=== PATIENT | female | born 1995 | race Caucasian/White ===

== ENCOUNTER → 2018-03-31 16:28 | Outpatient (CLI) | payer OTHER, BC, SELFPAY ==
[2018-03-31 18:35] LABS: Add Manual Diff / Slide Review NO; Basophils Percent Auto 0.7 % (0-2); Hemoglobin 13.7 g/dL (12.0-16.0); Lymphocytes Percent Auto 34.1 % (25-40); Mean Corpuscular HGB Conc 33.4 % (30-36); Mean Corpuscular Volume 80.8 fL (80-100); Monocytes Percent Auto 8.1 % (3-14); Neutrophils Absolute Auto 4100 /uL (3000-5900); Neutrophils Percent Auto 55.1 % (50-75); Platelet Count 249 X10^3/uL (150-400); Red Blood Cell Count 5.08 X10^6/uL (4.0-5.2); Red Cell Distribution Width 14.9 % (11.6-14.8); White Blood Cell Count 7.4 X10^3/uL (4.5-11.0)
[2018-03-31 19:16] LABS: Alanine Aminotransferase 45 IU/L (9-52); Albumin 4.4 g/dL (3.5-5.0); Albumin Globulin Ratio 1.5 (1.0-2.8); Alkaline Phosphatase 70 U/L (38-126); Aspartate Aminotransferase 48 IU/L (14-36); Bilirubin Total 0.3 mg/dL (0.2-1.3); Blood Urea Nitrogen 12 mg/dL (7-17); Calcium 9.5 mg/dL (8.4-10.2); Carbon Dioxide 26 mmol/L (22-32); Chloride 101 mmol/L (98-107); Cholesterol 211 mg/dL (140-199); Estimated Glomerular Filt Rate > 60.0 mL/min (>60); Globulin 2.9 g/dL (1.7-4.1); Glucose 90 mg/dL (70-100); HDL Cholesterol 47 mg/dL (40-60); HEMOLYSIS 16 (0-50); LDL Cholesterol Calculated 98 mg/dL (<100); Potassium 4.1 mmol/L (3.4-5.1); Sodium 138 mmol/L (137-145); Total Protein 7.3 g/dL (6.3-8.2); Triglycerides 331 mg/dL (35-150)
[2018-03-31 19:22] LABS: Rheumatoid Factor < 8.6 IU/mL (<12.0)
[2018-03-31 19:46] LABS: TSH w/ Reflex to FT4 1.24 uIU/mL (0.47-4.68)
== END ==
PROVIDERS: PCP Family Medicine; Visit Provider Family Medicine
DX: M25.50 Pain in unspecified joint (principal); E28.2 Polycystic ovarian syndrome; R63.5 Abnormal weight gain
CPT/HCPCS: 36415; 80053; 80061; 84443; 85025; 86430

== ENCOUNTER → 2019-03-19 15:39 | Outpatient (CLI) | payer OTHER, SELFPAY ==
[2019-03-19 16:19] LABS: Add Manual Diff / Slide Review NO; Basophils Absolute Auto 0 /uL (0-100); Basophils Percent Auto 0.6 % (0-2); Eosinophils Absolute Auto 100 /uL (0-450); Eosinophils Percent Auto 1.8 % (2-4); Hematocrit 39.9 % (36-46); Hemoglobin 13.6 g/dL (12.0-16.0); Lymphocytes Absolute Auto 2400 /uL (1100-4500); Lymphocytes Percent Auto 32.8 % (25-40); Mean Corpuscular HGB Conc 34.1 % (30-36); Mean Corpuscular Hemoglobin 29.1 PG (26-34); Mean Corpuscular Volume 85.2 fL (80-100); Monocytes Absolute Auto 600 /uL (0-900); Monocytes Percent Auto 7.4 % (3-14); Neutrophils Absolute Auto 4300 /uL (1500-7000); Neutrophils Percent Auto 57.4 % (50-75); Platelet Count 252 X10^3/uL (150-400); Red Blood Cell Count 4.68 X10^6/uL (4.0-5.2); Red Cell Distribution Width 14.3 % (11.6-14.8); White Blood Cell Count 7.5 X10^3/uL (4.5-11.0)
[2019-03-19 16:58] LABS: Alanine Aminotransferase 32 IU/L (9-52); Albumin 4.4 g/dL (3.5-5.0); Albumin Globulin Ratio 1.6 (1.0-2.8); Alkaline Phosphatase 73 U/L (38-126); Aspartate Aminotransferase 37 IU/L (14-36); Bilirubin Total 0.3 mg/dL (0.2-1.3); Blood Urea Nitrogen 14 mg/dL (7-17); Calcium 9.9 mg/dL (8.4-10.2); Carbon Dioxide 23 mmol/L (22-32); Chloride 107 mmol/L (98-107); Estimated Glomerular Filt Rate > 60.0 mL/min (>60); Globulin 2.8 g/dL (1.7-4.1); Glucose 92 mg/dL (70-100); HEMOLYSIS < 15 (0-50); Potassium 4.4 mmol/L (3.4-5.1); Sodium 140 mmol/L (137-145); Total Protein 7.2 g/dL (6.3-8.2)
[2019-03-19 17:29] LABS: TSH w/ Reflex to FT4 1.07 uIU/mL (0.47-4.68)
== END ==
PROVIDERS: PCP Family Medicine; Visit Provider Family Medicine
DX: N91.2 Amenorrhea, unspecified (principal); N97.9 Female infertility, unspecified
CPT/HCPCS: 36415; 80053; 84443; 85025

== ENCOUNTER → 2019-04-22 14:47 | Outpatient (CLI) | payer OTHER, SELFPAY ==
[2019-04-22 15:53] LABS: Glucose 87 mg/dL (70-100)
[2019-04-22 16:10] LABS: Free T4, Direct Thyroxine 0.94 ng/dL (0.78-2.19)
[2019-04-22 20:02] LABS: Follicle Stimulating Hormone 6.07 mIU/mL
[2019-05-04 12:42] LABS: Insulin Level Total 10.7
== END ==
PROVIDERS: PCP Family Medicine; Visit Provider Obstetrics & Gynecology
DX: E28.2 Polycystic ovarian syndrome (principal); N97.0 Female infertility associated with anovulation
CPT/HCPCS: 36415; 82947; 83001; 83002; 83525; 84439

== ENCOUNTER → 2019-09-23 10:41 | Outpatient (CLI) | payer OTHER, SELFPAY ==
--- NOTE | 2019-09-23 10:42 | DI.US.S_ITS ---
PROCEDURE: US OB <= 14 WEEKS FETUS INDICATIONS: DATES AND VIABILITY OUTSIDE/PRIOR DATING DATA: Last menstrual period (LMP): 07/25/19. LMP-based estimated date of delivery (BOAZ): 04/30/20. First dating scan (date and location): 09/23/19. Estimated date of delivery (BOAZ) from first dating scan: 05/02/20. TECHNIQUE: Real-time scanning was performed of the fetus and maternal pelvic organs, with image documentation. Endovaginal scanning was also performed to better visualize the fetus and maternal ovaries. COMPARISON: None. FINDINGS: Embryo: [place]-rump length measures 1.8 cm corresponding to 8 weeks 2 days. Area measures 173 beats per minute. Measurement variability in dating: +/- 4 weeks by LMP, +/- 7 days by mean sac diameter (use before 6 weeks gestation if crown-rump length not able to be measured), +/- 5 days by crown-rump length (up to 8 weeks 6 days gestation), +/- 7 days by crown-rump length (up to 13 weeks 6 days gestation). Maternal organs: Ovaries within normal limits. Limited images through the kidneys demonstrate no hydronephrosis. IMPRESSION: 8 week 2 day nava IUP. Dictated by: Zhao Roca RRA Interpreted: Vic Nguyen MD on 09/23/2019 at 13:08 Approved by: iVc Nguyen M.D. on 09/23/2019 at 15:31
[2019-09-23 16:15] LABS: Add Manual Diff / Slide Review NO; Basophils Absolute Auto 0 /uL (0-100); Basophils Percent Auto 0.4 % (0-2); Eosinophils Absolute Auto 100 /uL (0-450); Eosinophils Percent Auto 1.3 % (2-4); Hematocrit 38.8 % (36-46); Hemoglobin 13.6 g/dL (12.0-16.0); Lymphocytes Absolute Auto 2400 /uL (1100-4500); Lymphocytes Percent Auto 27.3 % (25-40); Mean Corpuscular Hemoglobin 29.3 PG (26-34); Mean Corpuscular Volume 83.7 fL (80-100); Monocytes Absolute Auto 600 /uL (0-900); Monocytes Percent Auto 6.4 % (3-14); Neutrophils Absolute Auto 5800 /uL (1500-7000); Neutrophils Percent Auto 64.6 % (50-75); Platelet Count 250 X10^3/uL (150-400); Red Blood Cell Count 4.63 X10^6/uL (4.0-5.2); Red Cell Distribution Width 14.2 % (11.6-14.8); White Blood Cell Count 8.9 X10^3/uL (4.5-11.0)
[2019-09-23 17:07] LABS: Appearance Urine UA CLEAR; Bilirubin Urine UA NEGATIVE (NEGATIVE); Color Urine UA YELLOW; Glucose Urine UA NEGATIVE (Negative); Ketones Urine UA NEGATIVE (NEGATIVE); Leukocyte Esterase Urine UA NEGATIVE (NEGATIVE); Nitrite Urine UA NEGATIVE (Negative); Occult Blood Urine UA NEGATIVE (Negative); Protein Urine UA NEGATIVE (Negative); Specific Gravity Urine UA 1.025 (1.000-1.035); Urobilinogen Urine UA 0.2 E.U./dL (0.2)
[2019-09-23 17:10] LABS: pH Urine UA 5.5 (4.5-8.0)
[2019-09-23 17:22] LABS: Hepatitis B Surface Antigen NEGATIVE s/c (NEGATIVE)
[2019-09-23 17:32] LABS: HIV 1 & 2 Ab/Ag 4th Gen Combo NEGATIVE (NEGATIVE); Hep C Virus Ab w/Reflex Quant NEGATIVE s/c (NEGATIVE)
[2019-09-25 21:37] LABS: RPR Screen Nonreactive (Nonreactive)
== END ==
PROVIDERS: PCP Family Medicine; Visit Provider Family Medicine
DX: Z34.01 Encounter for supervision of normal first pregnancy, first trimester (principal); Z3A.08 8 weeks gestation of pregnancy
CPT/HCPCS: 36415; 76801; 80055; 81003; 86787; 86803; 86850; 86900; 86901; 87086; 87389

== ENCOUNTER → 2019-10-21 12:51 | Outpatient (CLI) | payer OTHER, SELFPAY ==
[2019-10-21 13:15] LABS: Appearance Urine UA CLEAR; Bilirubin Urine UA NEGATIVE (NEGATIVE); Color Urine UA YELLOW; Glucose Urine UA NEGATIVE (Negative); Ketones Urine UA TRACE (NEGATIVE); Leukocyte Esterase Urine UA NEGATIVE (NEGATIVE); Nitrite Urine UA NEGATIVE (Negative); Occult Blood Urine UA 3+ (Negative); Protein Urine UA NEGATIVE (Negative); Urobilinogen Urine UA 0.2 E.U./dL (0.2)
[2019-10-21 13:26] LABS: Bacteria Urine Many (>30); Culture Indicated Urine Cult Not Indicated; RBC Urine 10-30/HPF (0-5/HPF); Squamous Epithelial Cell Urine 10-30 /HPF (0-5/HPF); WBC Urine 0-1/HPF (0-5/HPF)
== END ==
PROVIDERS: PCP Family Medicine; Visit Provider Family Medicine
DX: R31.9 Hematuria, unspecified (principal)
CPT/HCPCS: 81001

== ENCOUNTER → 2019-10-22 10:31 | Outpatient (CLI) | payer OTHER, SELFPAY ==
[2019-10-22 10:37] LABS: Bacteria Urine None Seen; RBC Urine None Seen (0-5/HPF)
[2019-10-22 12:51] LABS: Appearance Urine UA CLEAR; Bilirubin Urine UA NEGATIVE (NEGATIVE); Color Urine UA YELLOW; Glucose Urine UA NEGATIVE (Negative); Ketones Urine UA NEGATIVE (NEGATIVE); Leukocyte Esterase Urine UA NEGATIVE (NEGATIVE); Nitrite Urine UA NEGATIVE (Negative); Occult Blood Urine UA NEGATIVE (Negative); Protein Urine UA NEGATIVE (Negative); Specific Gravity Urine UA <=1.005 (1.000-1.035); Urobilinogen Urine UA 0.2 E.U./dL (0.2)
[2019-10-22 12:58] LABS: Culture Indicated Urine Cult Not Indicated; Squamous Epithelial Cell Urine 0-1 /HPF (0-5/HPF); WBC Urine 0-1/HPF (0-5/HPF)
== END ==
PROVIDERS: PCP Family Medicine; Referring Provider Family Medicine; Visit Provider Family Medicine
DX: Z34.90 Encounter for supervision of normal pregnancy, unspecified, unspecified trimester (principal); R31.9 Hematuria, unspecified
CPT/HCPCS: 81001

== ENCOUNTER → 2019-11-24 13:46 | Outpatient (CLI) | payer OTHER, SELFPAY ==
[2019-11-26 21:07] LABS: AFP, Serum 45.7 ng/mL (.); Calc Gestational Age Ultrasound (.); Estriol, Free 0.92 ng/mL (.); Inhibin A, Dimeric 95.66 pg/mL (.); Inhibin A, MoM 0.74 (.); Maternal Ethnicity Caucasian (.); Maternal Weight 228 lbs (.); Number of Fetuses No (.); OSBR Risk 1 IN 2886 (.); Results Report (.); Test Results *Screen Negative* (.); hCG, MoM 0.89 (.); hCG, Serum 20936 mIU/mL (.)
== END ==
PROVIDERS: PCP Family Medicine; Referring Provider Family Medicine; Visit Provider Family Medicine
DX: Z34.90 Encounter for supervision of normal pregnancy, unspecified, unspecified trimester (principal); Z3A.16 16 weeks gestation of pregnancy
CPT/HCPCS: 36415; 82105; 82677; 84702; 86336

== ENCOUNTER → 2019-12-10 11:15 | Outpatient (CLI) | payer OTHER, SELFPAY ==
--- NOTE | 2019-12-10 11:16 | DI.US.S_ITS ---
PROCEDURE: US OB >= 14 WEEKS FETUS INDICATIONS: ANATOMY OUTSIDE/PRIOR DATING DATA: Last menstrual period (LMP): 07/25/2019. LMP-based estimated date of delivery (BOAZ): 04/30/2020. First dating scan (date and location): 09/23/2019. Estimated date of delivery (BOAZ) from first dating scan: 05/02/2020. TECHNIQUE: Real-time scanning was performed of the fetus, with image documentation and biometric measurements. Endovaginal scanning: Not performed COMPARISON: [facility], OB <= 14 WEEKS FETUS, 09/23/2019, 11:00. FINDINGS: General: A single living intrauterine gestation is present. Presentation: Variable. Placenta: Placental position is posterior, without previa. Amniotic fluid index: 13.3 cm, normal range is 5-24 cm. heart rate: 153 beats per minute. Maternal cervical canal: 3.1 cm long. Normal lower limit is 2.5 cm. biometrics: Biparietal diameter: 4.1 cm. 18 weeks 4 days. Head circumference: 16.7 cm. 19 weeks 3 days. Abdominal circumference: 14.2 cm. 19 weeks 4 days. Femur length: 3.1 cm. 19 weeks 4 days. Estimated gestational age from initial scan: 19 weeks 3 days. Composite gestational age from present scan: 19 weeks 3 days Estimated weight and percentile: 295 g. 48th percentile. Measurement variability for biometric dating: +/- 7 days from 14 weeks to 15 weeks 6 days gestation, +/- 10 days from 16 weeks to 21 weeks 6 days gestation, +/- 2 weeks from 22 weeks to 27 weeks 6 days gestation, +/- 3 weeks for 28 weeks gestation or later. weight reference: 4500 g or EFW >90/95% is considered macrosomia or large for gestational age. EFW <10% is small for gestational age. EFW 5% or less is considered intra-uterine growth restriction. Anatomic survey: Neuro: Ventricles are non-dilated at less than 10 mm. Cisterna magna is normal at 3-11 mm. Cerebellum is normal in size and morphology. Nuchal skin fold: Normal at less than 6 mm between 14-21 weeks gestational age. Face: Nose and lips, facial profile are normal. Spine: No evidence for spina bifida. Heart: 4-chambered heart is present, with normal ventricular outflow tracts. Diaphragm: Diaphragm is intact. Stomach: Left-sided stomach is present. Kidneys: No hydronephrosis. Normal is less than 5 mm in 2nd trimester, less than 7 mm in 3rd trimester. Cord: 3-vessel cord has orthotopic insertion. Bladder: Normal in size. Extremities: All 4 extremities identified. IMPRESSION: 1. Garcia living intrauterine at 19 weeks 3 days based on today's ultrasound. This is concordant with the prior ultrasound. There is expected interval growth. 2. Normal placenta and amniotic fluid. 3. Normal and complete anatomic survey. Dictated by: John oRmero M.D. on 12/10/2019 at 13:30 Approved by: John Romero M.D. on 12/10/2019 at 13:34
== END ==
PROVIDERS: PCP Family Medicine; Referring Provider Family Medicine; Visit Provider Family Medicine
DX: Z36.89 Encounter for other specified antenatal screening (principal); Z3A.19 19 weeks gestation of pregnancy
CPT/HCPCS: 76811

== ENCOUNTER → 2020-01-27 10:23 | Outpatient (CLI) | payer OTHER, SELFPAY ==
[2020-01-27 12:40] LABS: Hematocrit 34.7 % (36-46); Hemoglobin 11.8 g/dL (12.0-16.0)
[2020-01-27 13:18] LABS: GTT (PREG) 1 Hour PP 50gm Dose 119 mg/dL (76-139)
== END ==
PROVIDERS: PCP Family Medicine; Referring Provider Family Medicine; Visit Provider Family Medicine
DX: Z34.90 Encounter for supervision of normal pregnancy, unspecified, unspecified trimester (principal); Z3A.26 26 weeks gestation of pregnancy
CPT/HCPCS: 36415; 82950; 85014; 85018

== ENCOUNTER → 2020-02-10 12:41 | Outpatient (CLI) | payer OTHER, SELFPAY ==
[2020-02-10 12:47] LABS: Bacteria Urine None Seen
[2020-02-10 12:55] LABS: Appearance Urine UA CLEAR; Bilirubin Urine UA NEGATIVE (NEGATIVE); Color Urine UA YELLOW; Glucose Urine UA NEGATIVE (Negative); Ketones Urine UA NEGATIVE (NEGATIVE); Leukocyte Esterase Urine UA NEGATIVE (NEGATIVE); Nitrite Urine UA NEGATIVE (Negative); Occult Blood Urine UA 3+ (Negative); Protein Urine UA NEGATIVE (Negative); Specific Gravity Urine UA <=1.005 (1.000-1.035); Urobilinogen Urine UA 0.2 E.U./dL (0.2)
[2020-02-10 13:11] LABS: Culture Indicated Urine Cult Not Indicated; RBC Urine 30-100/HPF (0-5/HPF); Squamous Epithelial Cell Urine 0-1 /HPF (0-5/HPF); WBC Urine 0-1/HPF (0-5/HPF)
== END ==
PROVIDERS: PCP Family Medicine; Referring Provider Family Medicine; Visit Provider Family Medicine
DX: O26.899 Other specified pregnancy related conditions, unspecified trimester (principal); R31.9 Hematuria, unspecified
CPT/HCPCS: 81001

== ENCOUNTER → 2020-02-11 12:16 | Outpatient (CLI) | payer OTHER, SELFPAY ==
--- NOTE | 2020-02-11 12:17 | DI.US.S_ITS ---
PROCEDURE: US RENAL COMPLETE INDICATIONS: HEMATURIA, H/OKIDNEY STONES, ABDOMINAL PAIN, TECHNIQUE: Real-time scanning was performed of the kidneys and bladder, with image documentation. COMPARISON: [facility], CT, KIDNEY/ URETER/BLADDER, 02/27/2013, 17:46. FINDINGS: Kidneys: Kidneys are normal in size. Right kidney measures 12.2 cm long; left kidney measures 11.9 cm long. Right renal cortical thickness is 1.8 cm; left renal cortical thickness is 2 cm. Renal cortical echotexture is normal. No suspicious solid mass lesions. No hydronephrosis is seen. There is a 4 mm nonobstructing right-sided kidney stone seen within the mid right kidney. There is a 1.9 cm cyst seen at the superior aspect of the right kidney. Bladder: Pre-void bladder volume is 108 mL. Post-void residual is 31 mL. Pre-void images demonstrate no intraluminal masses or stones. On pre-void images, both ureteral jets are noted with color Doppler interrogation. (Of note, ureteral jets may not be detectable in up to 25% of cases due to insufficient differences in specific gravity between ureteral and bladder urine). Miscellaneous: No free pelvic fluid. IMPRESSION: There is a 4 mm nonobstructing right-sided kidney stone seen. No hydronephrosis is seen. A 1.9 cm right renal cyst is incidentally noted superiorly. Dictated by: Oz Logan M.D. on 02/11/2020 at 12:06 Approved by: Oz Logan M.D. on 02/11/2020 at 12:08
== END ==
PROVIDERS: PCP Family Medicine; Referring Provider Family Medicine; Visit Provider Family Medicine
DX: R31.9 Hematuria, unspecified (principal); N20.0 Calculus of kidney; N28.1 Cyst of kidney, acquired; Z87.442 Personal history of urinary calculi
CPT/HCPCS: 76770

== ENCOUNTER → 2020-03-09 13:19 | Outpatient (CLI) | payer OTHER, SELFPAY ==
[2020-03-09 14:56] LABS: Urine N gonorrhoeae NOT DETECTED
[2020-03-09 14:59] LABS: Urine Chlamydia NOT DETECTED
== END ==
PROVIDERS: PCP Family Medicine; Visit Provider Family Medicine
DX: Z11.8 Encounter for screening for other infectious and parasitic diseases (principal); Z34.90 Encounter for supervision of normal pregnancy, unspecified, unspecified trimester
CPT/HCPCS: 87491; 87591

== ENCOUNTER → 2020-04-06 10:29 | Outpatient (CLI) | payer OTHER, MEDICAID, SELFPAY ==
[2020-04-07 14:16] LABS: Strep Grp B PCR NEG for Grp B Strep
== END ==
PROVIDERS: PCP Family Medicine; Visit Provider Family Medicine
DX: Z34.90 Encounter for supervision of normal pregnancy, unspecified, unspecified trimester (principal); Z3A.36 36 weeks gestation of pregnancy
CPT/HCPCS: 87653

== ENCOUNTER 2020-05-01 11:46 | Outpatient (CLI) | payer OTHER, SELFPAY ==
--- NOTE | 2020-05-01 12:31 | PM.OBTRLD ---
Visit Information Visit Information Date of evaluation: 05/01/20 Primary OB Provider: Deepika Page On-call OB Provider: Deepika Page Reason for Evaluation: Yes non-stress test FOR[facility]LY [facility], [facility] Medical History Allergy (Acute) Infertility (Acute) PCOS (polycystic ovarian syndrome) (Acute) Pneumonia (Acute) Surgical History History of third molar tooth extraction (~2010) History of tonsillectomy (~1997) Kidney stones (Resolved ~2012) Family History Mother Hyperthyroidism Migraine Father Diabetes mellitus Hypertension Hyperlipidemia Myocardial infarct S/P triple vessel bypass Grandmother Suicide Grandfather Unknown whether patient has any health problems Grandfather Unknown whether patient has any health problems Grandmother Kidney disease, chronic, end stage on dialysis Family/Other Diabetes mellitus Social History marital status: number of children: 0 household members: spouse lives independently: Yes education level: college (Degree in exercise science BY ) 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 No tachycardia on NST. Scheduled for postdates induction 05/09/20. OB Disposition: home
== END 2020-05-01 12:30 | disposition home or self-care (01) ==
LOC: LABOR 11:50 → OB 05-02 09:29
PROVIDERS: PCP Family Medicine; Referring Provider Family Medicine; Visit Provider Family Medicine
DX: Z03.73 Encounter for suspected fetal anomaly ruled out (principal); Z3A.40 40 weeks gestation of pregnancy
CPT/HCPCS: 59025; G0378; G0379

== ENCOUNTER → 2020-05-06 10:32 | Outpatient (CLI) | payer OTHER, MEDICAID, SELFPAY ==
[2020-05-08 13:41] LABS: COVID19 Sendout Not Detected (Not Detect)
== END ==
PROVIDERS: PCP Family Medicine; Visit Provider Physician Assistant
DX: Z11.59 Encounter for screening for other viral diseases (principal)
CPT/HCPCS: 87635

== ENCOUNTER 2020-05-08 05:53 | Inpatient (IN) | payer OTHER, MEDICAID, SELFPAY ==
[2020-05-08] MEDS: LACTATED RINGERS 1,000 ML 100 ML IV ×2 (07:17→07:48)
[2020-05-08 07:23] LABS: Add Manual Diff / Slide Review NO; Basophils Absolute Auto 100 /uL (0-100); Basophils Percent Auto 0.5 % (0-2); Eosinophils Absolute Auto 100 /uL (0-450); Eosinophils Percent Auto 0.6 % (2-4); Hematocrit 37.8 % (36-46); Hemoglobin 12.7 g/dL (12.0-16.0); Lymphocytes Absolute Auto 2300 /uL (1100-4500); Lymphocytes Percent Auto 16.7 % (25-40); Mean Corpuscular HGB Conc 33.7 % (30-36); Mean Corpuscular Hemoglobin 29.3 PG (26-34); Monocytes Absolute Auto 800 /uL (0-900); Monocytes Percent Auto 5.7 % (3-14); Neutrophils Absolute Auto 10300 /uL (1500-7000); Neutrophils Percent Auto 76.5 % (50-75); Platelet Count 222 X10^3/uL (150-400); Red Blood Cell Count 4.34 X10^6/uL (4.0-5.2); Red Cell Distribution Width 14.9 % (11.6-14.8); White Blood Cell Count 13.5 X10^3/uL (4.5-11.0)
[2020-05-08 07:53] VITALS: BP 122/68
--- NOTE | 2020-05-08 08:43 | PM.AN.REGBLK ---
Regional Block Pre-procedure Procedure: Continuous Lumbar Epidural for L&D Attending OB provider: Deepika Page PMH/ROS narrative: term labor, PCOS on metformin, no complications. Albuterol on Rx list, but denies use or asthma. Hx: No personal or family history of anesthesia problems. ASA Class: II Labs: Hct 37.8 % (36-46) 05/08/20 06:50 Plt Count 222 X10^3/uL (150-400) 05/08/20 06:50 Medications: Current Medications Generic Name Dose Route Start Last Admin Trade Name Freq PRN Reason Stop Dose Admin Calcium Carbonate 1,000 mg 05/08/20 06:50 Tums PO Q2HR PRN Dyspepsia Diphenhydramine HCl 25 mg 05/08/20 08:02 Benadryl IV Q10M PRN Pruritis Lactated Ringer's 1,000 mls @ 100 mls/hr 05/08/20 07:00 05/08/20 07:48 Lactated Ringers IV 100 mls/hr CONT ISIDRA Administration Oxytocin/Lactated Ringer's 30 unit in 500 mls @ 3 mls/hr 05/08/20 07:00 Oxytocin Premix IV TITRATE ISIDRA Protocol 3 MILLIUNIT/MIN FENT 2MCG/ML BUPIV 0.125% EPI 200 mcg in 100 mls @ 6 mls/hr 05/08/20 08:15 Fentanyl/Bupiv/Ns 2mcg/Ml - 0.125% EPIDURAL CONT ISIDRA Ondansetron HCl 4 mg 05/08/20 06:50 Zofran IV Q4HR PRN Nausea And Vomiting Allergies: Allergies Allergy/AdvReac Type Severity Reaction Status Date / Time tree and shrub pollen Allergy Severe Typical Verified 02/10/20 10:40 symptoms sneezing and congestion Procedure Insertion date: 05/08/20 Insertion time: 08:17 Prep/Local: betadine x3 Interspace: L3-4 Patient position: sitting Needle: 18 gauge Hustead (CSE: 27g Pencan through Hustead, clear CSF. 1mL 0.25% bupiv) Loss of resistance with: saline ARABELLA at (cm): 6 Catheter placed at SKIN (cm): 12 Catheter in SPACE (cm): 6 Insertion: No Blood, No Paresthesia with insertion, No Paresthesia with injection and No Test dose reaction Initial Medications TEST DOSE time: 08:20 TEST DOSE: 1.5% lidocaine with epinephrine 1:200k (mL): 3 BOLUS DOSE time: 08:25 BOLUS DOSE (mL): 3 BOLUS DOSE med: other (infusate) Infusion INFUSION: 0.125% bupivacaine and with fentanyl 2 mcg/mL Initial rate (mL/hr): 6 Subsequent interventions: Post-procedure Anesthesia time START: 08:07 Anesthesia time END: 13:10 Post-procedure Anesthesia Assessment: Yes CV function: HR/BP stable, Yes Resp function: RR/sat/airway adequate, Yes Post-op hydration adequate, Yes Pain control adequate, Yes Nausea & vomiting absent, Yes Mental status appropriate and No Anesthesia complications
[2020-05-08 08:50] LABS: COVID19 -Nasal RAPID Negative (Negative)
--- NOTE | 2020-05-08 08:56 | P.HPOB_ITS ---
OB HPI Date/Time Date of admission: 05/08/20 Date Patient Seen: 05/08/20 Time Patient Seen: 09:00 History of Present Condition Chief complaint: Evaluation of Labor : 1 Para: 0 Estimated Date of Delivery: 04/30/20 Estimated Gestational Age (weeks): 41w1d Narrative: Annie Rosario is a 24 year old at 41 weeks and 1 day. Patient reports contractions began at approximately midnight and gradually increased in intensity the next several hours. Denies leaking, bleeding or decreased movement. She was scheduled for post-dates induction tomorrow. has been uncomplicated. She has a history of PCOS for which she takes metformin. It took over 2 years to conceive this . History of Present care: good care, initiated at week # (8), number of visits (15) and pounds weight gain (6) Dating criteria: LMP confirmed by 1st trimester US Ultrasounds: normal mid trimester US Obstetrical complications: none Medical complications: none Preadmission Labs Blood type: O (+) positive -: Antibody screen: negative, GBS status: negative, HBsAG: negative and RP R/VDLR: negative -: Chlamydia screen: not detected and Gonorrhea screen: not detected -: Rubella: immune and Varicella: immune HCT: 34.7 HCAB: negative PAP: Normal Quad screen: Normal Urine: Negative 1 hr GTT: 119 Evaluation Evaluation Baseline heart rate: 140 Variability: Moderate (11-25) monitor accelerations: Present monitor decelerations: Absent Contraction Frequency (minutes): 3 Uterine Contraction Intensity: Strong/Firm Category of Tracing: Reactive Cervical dilation (cm): 6 Cervical effacement (%): 100 station: -1 Laboratory results: Laboratory Tests 05/08/20 05/08/20 06:50 08:10 WBC 13.5 H RBC 4.34 Hgb 12.7 Hct 37.8 MCV 87.0 MCH 29.3 MCHC 33.7 RDW 14.9 H Plt Count 222 Neut % (Auto) 76.5 H Lymph % (Auto) 16.7 L [place] % (Auto) 5.7 Eos % (Auto) 0.6 L Baso % (Auto) 0.5 Neut # (Auto) 46250 H Lymph # (Auto) 2300 [place] # (Auto) 800 Eos # (Auto) 100 Baso # (Auto) 100 COVID-19 PCR Negative PFSH Medical History Allergy (Acute) Infertility (Acute) PCOS (polycystic ovarian syndrome) (Acute) Pneumonia (Acute) Surgical History History of third molar tooth extraction (~2010) History of tonsillectomy (~1997) Kidney stones (Resolved ~2012) Family History Mother Hyperthyroidism Migraine Father Diabetes mellitus Hypertension Hyperlipidemia Myocardial infarct S/P triple vessel bypass Grandmother Suicide Grandfather Unknown whether patient has any health problems Grandfather Unknown whether patient has any health problems Grandmother Kidney disease, chronic, end stage on dialysis Family/Other Diabetes mellitus Social History marital status: number of children: 0 household members: spouse lives independently: Yes education level: college (Degree in exercise science BY ) 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[employer] ) current occupational exposures/hazards: No special [place]e needs: No Smoking Status: Never smoker alcohol intake: never substance use type: does not use Meds Home Medications and Allergies Home Medications Medication Instructions Recorded Confirmed Type albuterol sulfate [Ventolin HFA] 2 puff INH Q4HP PRN #3 inh 10/09/17 03/23/20 Rx prenat.vits,jose alejandro,[id number] 1 tab PO DAILY 04/19/19 03/23/20 History loratadine 10 mg tablet 10 mg PO DAILY 09/23/19 03/23/20 History metformin 500 mg tablet 500 mg PO BID #180 tab 04/06/20 04/06/20 Rx Allergies Allergy/AdvReac Type Severity Reaction Status Date / Time tree and shrub pollen Allergy Severe Typical Verified 02/10/20 10:40 symptoms sneezing and congestion Review of Systems Review of Systems ROS: Yes All systems reviewed with the patient and are negative except as otherwise documented Exam Vital Signs (past 8 hours): - 05/08/20 07:53 Blood Pressure 122/68 Temperature 36? Blood pressure 130/84 Heart rate 80 Const General: healthy appearing and comfortable HENMT Head: normal to inspection Ears: hearing grossly normal bilaterally Nose: external nose normal Face and sinus: normal facial exam Mouth: oral mucosae normal Eyes General: appearance normal, both eyes and all related structures Neck Neck: normal visual inspection Resp Effort & Inspection: normal respiratory effort Auscultation: clear to auscultation bilaterally Cardio Rate: regular rate Rhythm: regular rhythm Heart Sounds: no murmurs GI Other: Gravid External Female Exam: normal external appearance Manual OB Exam: dilated 6, effaced fully and station -1 Presentation: vertex Estimated Weight (lbs): 8 Back/Spine/Pelvis Back: normal to inspection Skin General: no rashes or lesions noted Extrem General: normal to inspection and no pedal edema Objective Labs Result Diagrams: 05/08/20 06:50 Labs: Laboratory Results - last 24 hr 05/08/20 05/08/20 06:50 08:10 WBC 13.5 H RBC 4.34 Hgb 12.7 Hct 37.8 MCV 87.0 MCH 29.3 MCHC 33.7 RDW 14.9 H Plt Count 222 Neut % (Auto) 76.5 H Lymph % (Auto) 16.7 L Har[place] % (Auto) 5.7 Eos % (Auto) 0.6 L Baso % (Auto) 0.5 Neut # (Auto) 39264 H Lymph # (Auto) 2300 [place] # (Auto) 800 Eos # (Auto) 100 Baso # (Auto) 100 COVID-19 PCR Negative Assessment and Plan Assessment and Plan Assessment and Plan narrative: 24-year-old 41 weeks and 1 day gestation in labor. GBS negative. Comfortable with epidural. COVID-19 negative. Plan Expected management anticipate vaginal delivery.
--- NOTE | 2020-05-08 11:23 | PM.OBPNLAB ---
Date/Time Date Patient Seen: 05/08/20 Time Patient Seen: 11:05 Pain Control Pain control: tolerating well and epidural Pelvic Exam Dilation (cm): 9 Effacement (%): 100 station: -1 Amniotic membrane status: Ruptured (Scant amount, unable to determine if clear due to blood show in vagina. ) Contractions Contraction frequency (min): 2 Contraction intensity: Strong/Firm Status status: Category l Heart Rate Baseline: 140 Monitor Accelerations: Present Monitor Decelerations: Variable Monitor Variability: Moderate Assessment and Plan Assessment: active labor Plan: continuous present management
[2020-05-08] MEDS: OXYTOCIN PREMIX 30 UNIT/500 ML PLAST..BAG IV (13:00)
--- NOTE | 2020-05-08 13:44 | PM.OBPRVD ---
Labor & Delivery Delivery date: 05/08/20 Route of delivery: L&D Laceration Description: Perineal - 2nd Degree, Vaginal - 2nd Degree and Labial Delivery repair: vicryl Estimated blood loss (mL): 300 Anesthesia type: Epidural Narrative: VAGINAL DELIVERY NOTE Date 05/08/2020 BRIEF HISTORY: Patient is a 24-year-old at 41 weeks and 1 day gestation who gave on 05/08/20 at 12:55 p.pm.. BOAZ: 04/30/20 Hospital problems: 41 weeks of Epidural analgesia STAGE I: Labor Patient presented in active labor and received an epidural with adequate pain control. Strong contractions began at 3:45 a.m.. She progressed well spontaneously. AROM at 11:00 a.m. with a small amount of blood tinged fluid. She was completed at 12:00 p.m.. heart tones were category 1 and 2 throughout stage 1 due to intermittent variable decelerations. First stage of labor 8 hours and 15 minutes. STAGE II: Delivery Patient was complete and pushed well. She went on to deliver a vigorous female infant at 12:55 p.m.. Infant was vertex and EZEQUIEL. Infant was immediately placed on mother's abdomen. Cord was clamped and cut after 1 minute delay. Apagars were 8 and 9 at 1 and 5 minutes respectively. Second stage of labor 55 minutes. STAGE III: Placenta/Cord Placenta delivered at 12:59 p.m. after active management and appeared intact with a 3 vessel cord. Pitocin bolus given after delivery of placenta. The vagina was inspected and found to have a long second degree laceration extending far back into the vagina as well as into the perineum. Dr. Renee was consulted and present for repair. A Gelpi retractor was placed and a second retractor used to visualize the laceration. The apex was marked with an Allis clamp and the laceration was repaired with 2-O vicryl. Hemostasis assured. There was a superficial right labial laceration which was not repaired. Uterine fundus first 1 cm below umbilicus following laceration repair. EBL: 300 mL. Needle and sponge counts were correct. The vagina was inspected and no items were left in situ. Patient was doing well with Anaia, her and at bedside. Baby 1: gender: Female Presentation: vertex position: Right Occiput Anterior Placenta delivery description: Spontaneous cord vessel description: 3 Vessels score (1 min): 8 score (5 min): 9
[2020-05-08] MEDS: IBUPROFEN 600 MG TABLET PO (21:21)
[2020-05-08] MEDS: ACETAMINOPHEN 325 MG TABLET 650 MG PO (21:21)
[2020-05-08] MEDS: METFORMIN HCL 500 MG TABLET PO (21:25)
--- NOTE | 2020-05-09 13:27 | PM.OBDS.1 ---
Discharge Providers Provider Date of admission: 05/08/20 05:53 Discharge Date: 05/09/20 Primary care physician: Deepika Page DO Consults: 05/09/20 13:45 Consult to Residential Program Manager Routine Comment: Discharge provider: Deepika Page DO Summary Hospital Course Date Patient Seen: 05/09/20 Time Patient Seen: 12:45 Procedures: Spontaneous vaginal delivery Epidural analgesia Hospital Course: Patient is a 24-year-old G1 now P1 after spontaneous vaginal delivery at 41 weeks gestation on 05/08/20. She presented in active labor and received an epidural with adequate pain control. She went on to deliver a vigorous female . A long second-degree vaginal laceration was repaired with the assistance of Dr. Renee with good hemostasis. course was uncomplicated. is going very well. Patient was ambulating, eating, voiding and passing flatus. Vaginal bleeding was moderate as expected. Pain controlled with ibuprofen only. Advised patient to call for fevers, severe pain or bleeding through more than a pad an hour. She will follow-up in clinic in 6 weeks. We will also be seeing her when she brings in her . Peripartum Data Infant Delivery Method: Natural Vaginal Laceration Description: Perineal - 2nd Degree and Vaginal - 2nd Degree complications: none 1: Gender: Female Disposition of : home Discharge Diagnosis (1) Spontaneous vaginal delivery: Status: Acute (2) 41 weeks gestation of : Status: Acute Status at Discharge Cognitive/behavioral status at discharge: at baseline, oriented Overall status at discharge: patient is back to baseline Time Spent with Patient Time attestation: Total time spent providing and/or coordinating discharge services: Objective Labs Result Diagrams: 05/08/20 06:50 Exam Vital Signs (past 8 hours): Temperature 98.2? blood pressure 116/68 heart rate 102 respirations 16 Narrative Exam Narrative: General: Awake and alert, no acute distress. HEENT: NCAT, EOMI, moist oral mucosa CV: Regular rate and rhythm, no murmurs, rubs or gallops Lungs: CTAB, no wheezes, rales, or rhonchi Abdomen: Soft, nontender; bowel tones active; uterus firm 1 cm below umbilicus Extremities: Warm, no edema Discharge Plan Discharge Plan Patient Disposition: Home Discharge orders & Medications Prescriptions: New docusate sodium [DOK] 100 mg Capsule 100 mg PO DAILY Qty: 30 RF: 0 ibuprofen 600 mg Tablet 600 mg PO Q6HR PRN (Reason: Pain, Mild (1-3)) Qty: 30 RF: 0 Continued metformin 500 mg tablet 500 mg PO BID Qty: 180 RF: 2 loratadine [Claritin] 10 mg tablet 10 mg PO DAILY RF: 0 prenat.vits,jose alejandro,rnb-xiqu-[id number] tablet 1 tab PO DAILY RF: 0 Follow up/Referrals: Deepika Page DO [Primary Care Provider] - 6 Weeks (To call [phone] with any questions or concerns) Visit Report/Discharge Packet Stand Alone Forms: Discharge: Care Visit Report Forms: Patient Portal/API, Stroke Signs & Symptoms Discharge Data Primary Care Provider: Deepika Page Discharges patient from system. Discharge Date/Time: 05/09/20 15:02
[2020-05-09 14:40] VITALS: BP 122/68; PULSE 102; RESP 18; TEMP 36.9
== END 2020-05-09 15:02 | disposition home or self-care (01) | DRG 560 ==
PROVIDERS: Admitting Provider Family Medicine; PCP Family Medicine; Referring Provider Family Medicine; Visit Provider Family Medicine
DX: O48.0 Post-term pregnancy (principal); Z3A.41 41 weeks gestation of pregnancy; Z37.0 Single live birth; O70.1 Second degree perineal laceration during delivery; Z11.59 Encounter for screening for other viral diseases
CPT/HCPCS: 01967; 59050; 59409; 85025; 86850; 86900; 86901; 87635; G0379; J2590

== ENCOUNTER 2020-08-28 16:23 | Emergency (ER) | payer SELFPAY ==
[2020-08-28] VITALS (8 sets, daily range): BP systolic 122–130; BP diastolic 63–84; PULSE 72–92; RESP 20; TEMP 36.7; O2SAT 97–98
[2020-08-28 17:00] LABS: Add Manual Diff / Slide Review NO; Basophils Absolute Auto 0 /uL (0-100); Basophils Percent Auto 0.6 % (0-2); Eosinophils Absolute Auto 200 /uL (0-450); Eosinophils Percent Auto 3.2 % (2-4); Hematocrit 41.6 % (36-46); Hemoglobin 13.8 g/dL (12.0-16.0); Lymphocytes Absolute Auto 2100 /uL (1100-4500); Mean Corpuscular HGB Conc 33.3 % (30-36); Mean Corpuscular Hemoglobin 27.9 PG (26-34); Mean Corpuscular Volume 83.8 fL (80-100); Monocytes Absolute Auto 400 /uL (0-900); Monocytes Percent Auto 4.8 % (3-14); Neutrophils Absolute Auto 4700 /uL (1500-7000); Neutrophils Percent Auto 63.4 % (50-75); Platelet Count 260 X10^3/uL (150-400); Red Blood Cell Count 4.96 X10^6/uL (4.0-5.2); Red Cell Distribution Width 14.2 % (11.6-14.8); White Blood Cell Count 7.5 X10^3/uL (4.5-11.0)
[2020-08-28 17:07] LABS: Prothrombin Time 11.1 SECONDS (10.1-12.7)
[2020-08-28 17:10] LABS: PTT Partial Thromboplastin Tim 33 SECONDS (26.4-36.2)
[2020-08-28 17:15] LABS: Alanine Aminotransferase 29 IU/L (<35); Albumin 4.4 g/dL (3.5-5.0); Albumin Globulin Ratio 1.4 (1.0-2.8); Alkaline Phosphatase 78 U/L (38-126); Aspartate Aminotransferase 97 IU/L (14-36); BUN Creatinine Ratio 18.8 (6-22); Bilirubin Total 0.2 mg/dL (0.2-1.3); Blood Urea Nitrogen 12 mg/dL (7-17); Calcium 9.7 mg/dL (8.4-10.2); Carbon Dioxide 24 mmol/L (22-32); Chloride 106 mmol/L (98-107); Estimated Glomerular Filt Rate > 60.0 mL/min (>60); Globulin 3.1 g/dL (1.7-4.1); Glucose 123 mg/dL (70-100); HEMOLYSIS 24 (0-50); Lipase 88 U/L (23-300); Potassium 3.9 mmol/L (3.4-5.1); Sodium 137 mmol/L (137-145); Total Protein 7.5 g/dL (6.3-8.2)
--- NOTE | 2020-08-28 19:18 | ED_ITS ---
HPI - Abdominal Pain General Chief Complaint: Abdominal Pain Stated Complaint: Upper Center Abd Pain Time Seen by Provider: 08/28/20 19:17 Source: patient Mode of arrival: Ambulatory History of Present Illness HPI narrative: 25-year-old woman who is 3 months currently breast- feeding over the last 4 days has had increasing, intermittent epigastric to right upper quadrant pain. Last night with significant enough that she was not able to get to sleep until the early childhood education coordinator hours. She does not note that food makes it better or worse, it is not positional and having a a bowel movement did not change any of the pain. She denies fever, cough, chills, breast tenderness or erythema, heart palpitations, dyspnea, headache or lower extremity edema. She does note that the pain was severe enough that she had an episode of emesis prior to arrival today and shortly after that the pain completely resolved. Related Data Home Medications Medication Instructions Recorded Confirmed prenat.vits,jose alejandro,[id number] 1 tab PO DAILY 04/19/19 05/09/20 loratadine 10 mg tablet 10 mg PO DAILY 09/23/19 03/23/20 Previous Rx's Medication Instructions Recorded docusate sodium [DOK] 100 mg PO DAILY #30 cap 05/09/20 ibuprofen 600 mg PO Q6HR PRN #30 tab 05/09/20 norethindrone (contraceptive) 0.35 0.35 mg PO DAILY #84 tab 07/06/20 mg tablet metformin 500 mg tablet 500 mg PO BID #180 tab 07/17/20 oxycodone-acetaminophen 1 tab PO Q6H PRN #14 tab 08/28/20 Allergies Allergy/AdvReac Type Severity Reaction Status Date / Time tree and shrub pollen Allergy Severe Typical Verified 05/09/20 02:13 symptoms sneezing and congestion Review of Systems Review of Systems Narrative: ROS Unobtainable: All systems reviewed & are unremarkable except as noted in HPI and below Patient History Medical History Allergy Infertility PCOS (polycystic ovarian syndrome) Pneumonia Spontaneous vaginal delivery Surgical History History of third molar tooth extraction (~2010) History of tonsillectomy (~1997) Kidney stones (~2012) Family History Mother Hyperthyroidism Migraine Father Diabetes mellitus Hypertension Hyperlipidemia Myocardial infarct S/P triple vessel bypass Grandmother Suicide Grandfather Unknown whether patient has any health problems Grandfather Unknown whether patient has any health problems Grandmother Kidney disease, chronic, end stage on dialysis Family/Other Diabetes mellitus Social History marital status: number of children: 0 household members: spouse lives independently: Yes education level: college (Degree in exercise science [employer] ) 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 Able to give a complete and coherent history. Well-nourished well-developed HEENT: Moist mucous membranes, normal sclera with reactive pupils, Chest: Breasts without any evidence of mastitis Respiratory: Lungs are clear to auscultation, no wheezing no rales no rhonchi. Full and symmetrical air movement Cardiac: Regular rate and rhythm no murmurs no bruits Abdomen: Soft , mildly tender in the midepigastrium to the right upper quadrant without rebound or guarding, good bowel tones, no flank pain Skin: Warm and dry, no rashes Neurologic: Grossly neurologically intact with no obvious asymmetries or abnormalities Extremities: No trauma, well perfused Psych: Cooperative, appropriate insight and affect Initial Vital Signs Initial Vital Signs: Vital Signs Temperature 98.1 F 08/28/20 16:37 Pulse Rate 92 H 08/28/20 16:37 Respiratory Rate 20 08/28/20 16:37 Blood Pressure 129/81 08/28/20 16:37 Pulse Oximetry 98 08/28/20 16:37 Course Orders Ordered: ED Orders 08/28/20 19:38 US abdomen limited Stat Vital Signs Vital signs: Vital Signs - 8 hr 08/28/20 19:30 08/28/20 19:32 08/28/20 20:00 Pulse Rate 81 84 77 Blood Pressure 122/74 130/84 122/63 Pulse Oximetry 97 98 98 08/28/20 20:30 08/28/20 20:57 08/28/20 21:00 Pulse Rate 72 76 82 Blood Pressure 125/77 Pulse Oximetry 97 97 97 MDM - Abdominal Pain Medical Records Attestation: I reviewed the patient's medical records. Lab Data Attestation: I reviewed the patient's lab results. Result diagrams: 08/28/20 16:47 08/28/20 16:47 Labs: Lab Results 08/28/20 08/28/20 08/28/20 Range/Units 16:47 16:47 16:47 WBC 7.5 (4.5-11.0) X10^3/uL RBC 4.96 (4.0-5.2) X10^6/uL Hgb 13.8 (12.0-16.0) g/dL Hct 41.6 (36-46) % MCV 83.8 (80-100) fL MCH 27.9 (26-34) PG MCHC 33.3 (30-36) % RDW 14.2 (11.6-14.8) % Plt Count 260 (150-400) X10^3/uL Neut % (Auto) 63.4 (50-75) % Lymph % (Auto) 28.0 (25-40) % [place] % (Auto) 4.8 (3-14) % Eos % (Auto) 3.2 (2-4) % Baso % (Auto) 0.6 (0-2) % Neut # (Auto) 4700 (3839-1104) /uL Lymph # (Auto) 2100 (2780-3282) /uL [place] # (Auto) 400 (0-900) /uL Eos # (Auto) 200 (0-450) /uL Baso # (Auto) 0 (0-100) /uL PT 11.1 (10.1-12.7) SECONDS INR 1.0 (0.9-1.3) APTT 33 (26.4-36.2) SECONDS Sodium 137 (137-145) mmol/L Potassium 3.9 (3.4-5.1) mmol/L Chloride 106 (98-107) mmol/L Carbon Dioxide 24 (22-32) mmol/L BUN 12 (7-17) mg/dL Creatinine 0.64 (0.52-1.04) mg/dL Estimated GFR > 60.0 (>60) mL/min BUN/Creatinine Ratio 18.8 (6-22) Glucose 123 H (70-100) mg/dL Calcium 9.7 (8.4-10.2) mg/dL Total Bilirubin 0.2 (0.2-1.3) mg/dL AST 97 H (14-36) IU/L ALT 29 (<35) IU/L Alkaline Phosphatase 78 (38-126) U/L Total Protein 7.5 (6.3-8.2) g/dL Albumin 4.4 (3.5-5.0) g/dL Globulin 3.1 (1.7-4.1) g/dL Albumin/Globulin Ratio 1.4 (1.0-2.8) Lipase 88 (23-300) U/L Point of care testing: Point of Care Testing Test Results Negative Urine Dip Bedside Urine Glucose Negative Bedside Urine Bilirubin - Negative Bedside Urine Ketone - Negative Urine Specific [place] 1.025 Bedside Urine Occult Blood - Negative Bedside Urine pH 6.0 Bedside Urine Protein - Negative Bedside Urine Urobilinogen - Negative Bedside Urine Nitrite - Negative Bedside Urine Leukocytes - Negative Esterase Imaging Data Abdominal ultrasound: My Impression: Per the tech: Multiple small mobile gallstones without evidence of acute cholecystitis MDM Narrative Medical decision making narrative: 25-year-old woman 3 months with intermittent gallbladder related pain. No evidence of cholecystitis. Do not suspect gastric ulcer, no pancreatitis, no severe infection. At this time pain is entirely resolved. We discussed the acute management of gallstones. As she is pain-free at this point she is given prescription for pain medication to use as needed for severe pain and it is recommended that she follow-up with General surgery on an outpatient basis to discuss her recurrent symptoms and decide if schedule cholecystectomy might be best for her. Did ask her to return to the emergency room should she have recurrent pain that is not resolving or develops a fever with abdominal pain. She is safe for home discharge Discharge Plan Departure Patient Disposition: Home Clinical Impression: Gallbladder pain Instructions: DI for Gallstones Activity Restrictions/Additional Instructions: Thank you for coming in today Your blood work was very reassuring. There is no evidence of severe infection or immediate surgical issue. Your ultrasound did show some small gallstones in your gallbladder. The pain that you are experiencing is likely related to the gallstones. If the pain is severe as it was last night you can use 1 Percocet as needed for pain control. Typically eating as little fat as your able to tolerate will help prevent the pain as well. Please schedule a follow-up appointment with our general surgeon, Dr. Reich to talk about follow-up for your gallbladder and decide if surgery may be required. If you get dramatically worse, pain can not be controlled or you develop a fever with the pain you need to return to the emergency room for further evaluation Prescriptions: New oxycodone-acetaminophen 5-325 mg tablet 1 tab PO Q6H PRN (Reason: pain) Qty: 14 RF: 0 No Action norethindrone (contraceptive) 0.35 mg tablet 0.35 mg PO DAILY Qty: 84 RF: 3 metformin 500 mg tablet 500 mg PO BID Qty: 180 RF: 2 loratadine [Claritin] 10 mg tablet 10 mg PO DAILY RF: 0 prenat.vits,jose alejandro,[id number] tablet 1 tab PO DAILY RF: 0 docusate sodium [DOK] 100 mg Capsule 100 mg PO DAILY Qty: 30 RF: 0 ibuprofen 600 mg Tablet 600 mg PO Q6HR PRN (Reason: Pain, Mild (1-3)) Qty: 30 RF: 0 Referrals: Deepika Page DO [Primary Care Provider] -
--- NOTE | 2020-08-28 19:38 | DI.US.S_ITS ---
PROCEDURE: US ABDOMEN LIMITED INDICATIONS: RUQ PAIN TECHNIQUE: Real-time focused scanning was performed of the abdomen, with image documentation. COMPARISON: None. FINDINGS: Multiple mobile while teeth gallstones. No gallbladder wall thickening or abnormal distention of the gallbladder. No pericholecystic fluid. The process development engineer reports a negative sonographic Cotton sign. Moderate hepatic steatosis. No intrahepatic or extrahepatic biliary ductal dilatation. IMPRESSION: Cholelithiasis without findings of cholecystitis. Dictated by: Shane Vergara M.D. on 08/28/2020 at 20:41 Approved by: Shane Vergara M.D. on 08/28/2020 at 20:42
== END 2020-08-28 21:07 | disposition home or self-care (01) ==
PROVIDERS: Emergency Medicine; Emergency Provider Emergency Medicine; PCP Family Medicine
DX: K82.9 Disease of gallbladder, unspecified (principal); E28.2 Polycystic ovarian syndrome
CPT/HCPCS: 76705; 80053; 81003; 81025; 83690; 85025; 85610; 85730; 99283; 99284

== ENCOUNTER → 2020-09-15 10:19 | Outpatient (CLI) | payer OTHER, SELFPAY ==
[2020-09-15 11:57] LABS: COVID19 -Nasal RAPID Negative (Negative)
== END ==
PROVIDERS: PCP Family Medicine; Visit Provider Specialist
DX: Z01.812 Encounter for preprocedural laboratory examination (principal); Z20.822 Contact with and (suspected) exposure to COVID-19
CPT/HCPCS: 87635; C9803

== ENCOUNTER 2020-09-18 14:43 | Day surgery (SDC) | payer OTHER, SELFPAY ==
[2020-09-18] VITALS (11 sets, daily range): BP systolic 121–153; BP diastolic 75–98; PULSE 56–102; RESP 10–18; TEMP 36.1–36.8; O2SAT 97–100; BMI 31.7
--- NOTE | 2020-09-18 | PATH_ITS ---
[facility] Accession Number: [id number] . 01 Material submitted: . gallbladder - GALLBLADDER . 02 Diagnosis: Gallbladder, Cholecystectomy: Gallbladder with cholesterolosis and cholelithiasis. MRV 09/21/2020 1431 Local . 02 Electronically signed: . Fabiana Brar MD, Pathologist NPI- [id number] . 01 Gross description: . The specimen is received in formalin, labeled gallbladder and consists of a 6.0 x 3.5 x 3.2 cm intact gallbladder with a 0.2 cm in diameter cystic duct. The serosa is cruz-green and smooth. Opening reveals green viscous bile with multiple cruz bosselated choleliths ranging from 0.1 to 0.4 cm and measuring 3.0 x 2.0 x 0.6 cm in aggregate. The mucosa is cruz-green and velvety, and the wall thickness measures 0.1 cm. Rivet Passer sections are submitted, to include the en face cystic duct margin (blue) in cassette A1. ([id number]) /[facility] 09/20/2020 1533 Local . 02 Pathologist provided ICD-10: K80.20 . 02 CPT . 226953 Performed at: 01 [facility] [address], [place], [place] [id number] MD Matt Dominguez MD Phone: [phone] Performed at: 02 [facility] [address] [place], [place] [id number] MD Beti Oliva MD Phone: [phone]
[2020-09-18] MEDS: LACTATED RINGERS 1,000 ML 42 ML IV (15:24)
--- NOTE | 2020-09-18 16:22 | PM.PREOP ---
Pre-operative Note COVID-19 COVID-19 status: Negative Result date/Date tested (Pos, Neg/Pending): 09/15/20 Interval Note History & Physical reviewed/Exam performed by Physician: Yes Changes to H&P: No
--- NOTE | 2020-09-18 16:41 | SUR.OPER ---
Supine on padded OR bed, head on pillow, arms secured on padded arm boards at <90 degrees abduction, legs uncrossed, safety belt at thigh, tape over blanket over lower legs.
[2020-09-18] MEDS: CEFAZOLIN 2 GM/100 ML FROZ.PIGGY IV (16:46)
[2020-09-18] MEDS: BUPIVACAINE 0.5% (PF) VIAL 30 ML INJ (17:03)
--- NOTE | 2020-09-18 18:25 | P.OP_ITS ---
Operative Date/Time/Diagnoses Date of procedure: 09/18/20 Time of procedure: 18:26 Pre-op diagnosis: Cholelithiasis with right upper quadrant pain probable cholecystitis chronic Post-op diagnosis: same Procedure & Clinicians Procedure: Laparoscopic cholecystectomy Same procedure as scheduled: Yes Indications: Right upper quadrant pain with gallstones Surgeon: Trav Reich Click Yes if Unassisted: Yes Anesthesia Type: General Operative Notes Findings: Mild inflammation of the gallbladder. Multiple small branches of artery to the gallbladder. Closure Type: primary Specimen(s): other (Gallbladder) Prosthetic devices, grafts, tissues, transplants, or devices: None Estimated Blood Loss (mL): 10 Blood products transfused: none Procedure in detail: The patient was placed supine on the operating room table and underwent general endotracheal anesthesia. The patient was prepped and draped in the usual fashion. Local anesthetic was infiltrated near the umbilicus and curvilinear incision made and carried down through fascia into the peritoneal cavity. Stay sutures of 0 Vicryl were placed in the fascia. A 12 mm port was placed. The abdomen was insufflated. The patient was repositioned. Local anesthetic was infiltrated in 3 areas under the right costal margin and 3 small incisions made followed by placing 3 5 mm ports under direct laparoscopic camera vision internally. The gallbladder was grasped and elevated. There were chronic adhesions to its surface of the omentum which were taken down with blunt and sharp dissection and occasional cautery. Once this was accomplished Dissection was begun near its end. I readily identified a vascular supply which appeared to have multiple branches including 1 immediately adjacent to the cystic duct. These structures were as was the cystic duct from surrounding structures I ended up placing multiple clips on these structures and dividing them leaving at least 2 in the patient on each structure. All of these vascular structures as well as the cystic duct appeared to be adequately controlled.. The gallbladder was then dissected from its bed in the liver using cautery. I did encounter an additional small posterior artery which had 2 clips placed on it to control bleeding. The gallbladder was ultimately detached and removed through the umbilical port. The ports were all removed and the port sites were all irrigated. The stay sutures at the umbilicus were elevated. A 2 0 PDS suture was placed between them. The Vicryl and PDS sutures were then tied. The skin in all areas was irrigated and then closed with interrupted 4 0 Vicryl subcuticular stitches. Steri-Strips and Mastisol were applied. Band- Aids were placed and the patient was awakened, extubated and taken to the recovery area in good condition. Complications: none Post-operative Condition: stable Disposition: PACU
[2020-09-18] MEDS: LACTATED RINGERS 1,000 ML 100 ML IV (18:26)
[2020-09-18] MEDS: fentaNYL 100 MCG/2 ML INJ IV ×2 (18:32→18:40)
[2020-09-18] MEDS: KETOROLAC 30 MG/ML VIAL IV (18:57)
[2020-09-18] MEDS: OXYCODONE/ACETAMINOPHEN 5/325 TABLET 1 TAB PO (19:09)
--- NOTE | 2020-09-18 19:42 | SUR.PHASEII ---
Pt met discharge criteria: VSS, pain controlled, denied any nausea, abdominal dressings C/D/I, able to drink fluids without difficulty. Discharge instructions discussed with pt, all questions answered.
== END 2020-09-18 19:35 | disposition home or self-care (01) ==
PROVIDERS: PCP Family Medicine; Referring Provider Specialist; Visit Provider Specialist
PROC: 0FT44ZZ Resection of Gallbladder, Percutaneous Endoscopic Approach (ICD-10-PCS; CPT 47562; principal; 2020-09-18 15:30)
DX: K80.10 Calculus of gallbladder with chronic cholecystitis without obstruction (principal); K66.0 Peritoneal adhesions (postprocedural) (postinfection)
CPT/HCPCS: 47562; 81025; J0690; J1100; J1885; J2405; J2704; J3010

== ENCOUNTER 2020-09-30 17:16 | Emergency (ER) | payer OTHER, SELFPAY ==
[2020-09-30 17:28] VITALS: BP 161/96; PULSE 93; RESP 20; TEMP 36.7; O2SAT 100
--- NOTE | 2020-09-30 18:10 | ED.ABDPAIN ---
HPI - Abdominal Pain General Chief Complaint: Abdominal Pain Stated Complaint: STOMACH PAIN, SUSPECTS KIDNEY STONES, VOMITING Time Seen by Provider: 09/30/20 18:02 Source: patient Mode of arrival: Ambulatory Limitations: no limitations History of Present Illness HPI narrative: 25-year-old female nonsmoker with history of kidney stones and a recent cholecystectomy presents with her mother and a chief complaint of sudden onset left flank pain with radiation into her groin. She states the pain is 10/10, sharp and stabbing and comes and goes without any apparent provocation or palliation. She has had nausea vomiting but denies any dizziness, weakness or lightheadedness. She has had no fever or chills. 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 She denies dysuria, frequency or urgency MD complaint: flank pain Onset (ago): hour(s) Pain Consistency: intermittent Location: L flank Severity: severe Quality: stabbing and sharp Radiation: LLQ Relieving factors: nothing Exacerbating factors: nothing Associated symptoms: nausea Related Data Patient : No Home Medications Medication Instructions Recorded Confirmed prenat.vits,jose alejandro,[id number] 1 tab PO DAILY 04/19/19 09/30/20 metformin 250 mg PO BID 09/30/20 09/30/20 Previous Rx's Medication Instructions Recorded norethindrone (contraceptive) 0.35 0.35 mg PO DAILY #84 tab 09/11/20 mg tablet oxycodone See Rx Instructions .ROUTE 09/18/20 .COMPLEX PRN #14 tab cephalexin [Keflex] 500 mg PO BID #10 cap 09/30/20 hydrocodone-acetaminophen 1 tab PO Q4-6H PRN #10 tab 09/30/20 ketorolac 10 mg PO Q6H PRN #14 tab 09/30/20 Allergies Allergy/AdvReac Type Severity Reaction Status Date / Time tree and shrub pollen Allergy Severe Typical Verified 09/06/20 09:53 symptoms sneezing and congestion Review of Systems Constitutional Constitutional: Denies chills, Denies fatigue, Denies fever(s), Denies frequent falls, Denies lethargy and Denies weakness Eyes Eyes: Denies change in vision, Denies eye discharge, Denies irritation and Denies loss of vision ENT Ears, Nose, Mouth, and Throat: Denies change in voice, Denies dizziness, Denies neck pain, Denies sore throat and Denies throat swelling Cardiovascular Cardiovascular: Denies chest pain, Denies irregular heart rhythm, Denies lightheadedness, Denies palpitations, Denies dyspnea, Denies dyspnea on exertion and Denies orthopnea Respiratory Respiratory: Denies cough, Denies dyspnea, Denies dyspnea on exertion and Denies wheezing Gastrointestinal Gastrointestinal: Denies abdominal pain, Denies change in bowel habits, Denies diarrhea and Reports nausea Genitourinary Genitourinary: Reports flank pain Genitourinary: Reports flank pain Musculoskeletal Musculoskeletal: Denies neck pain and Denies numbness Integumentary/Breasts Skin/Breast: Denies pruritus, Denies erythema, Denies rash and Denies wounds Neurologic Neurologic: Denies behavioral changes, Denies confusion, Denies dizziness, Denies frequent falls, Denies loss of vision, Denies numbness and Denies weakness Psychiatric Psychiatric: Denies anxiety, Denies behavioral changes, Denies confusion, Denies depression, Denies homicidal ideation and Denies suicidal ideation Endocrine Endocrine: Denies fatigue, Denies flushing and Denies palpitations Hematologic/Lymphatic Hematologic/Lymphatic: Denies easy bruising Allergic/Immunologic Allergic/Immunologic: Denies urticaria, Denies throat swelling and Denies wheezing Patient History Medical History Allergy Infertility PCOS (polycystic ovarian syndrome) Pneumonia Spontaneous vaginal delivery Surgical History History of third molar tooth extraction (~2010) History of tonsillectomy (~1997) Kidney stones (~2012) Family History Mother Hyperthyroidism Migraine Father Diabetes mellitus Hypertension Hyperlipidemia Myocardial infarct S/P triple vessel bypass Grandmother Suicide Grandfather Unknown whether patient has any health problems Grandfather Unknown whether patient has any health problems Grandmother Kidney disease, chronic, end stage on dialysis Family/Other Diabetes mellitus Social History marital status: number of children: 0 household members: spouse lives independently: Yes education level: college occupational status: employed current occupational exposures/hazards: No special [place] needs: No Smoking Status: Never smoker alcohol intake: never substance use type: does not use Smoking Status: Never smoker alcohol intake frequency: other Substance Use Type: does not use Exam Narrative Exam Narrative: GENERAL: [25] year old patient appears stated age. Well-nourished, well-developed patient, in obvious discomfort, lying on her side, rubbing her left flank HEAD: Atraumatic. Normocephalic. EYES: Pupils equal round and reactive. Extraocular motions intact. No scleral icterus. No injection or drainage. ENT: Nose without bleeding, purulent drainage. Throat without erythema, tonsillar hypertrophy or exudate. Airway patent. NECK: Trachea midline. Non tender CARDIOVASCULAR: Regular rate and rhythm without murmurs, gallops, or rubs. RESPIRATORY: Clear to auscultation. Breath sounds equal bilaterally. No wheezes, rales, or rhonchi. GASTROINTESTINAL: Abdomen soft, non-tender, nondistended. EXTREMITIES: No edema or joint tenderness. BACK: Nontender without deformity or crepitance. No flank tenderness. NEURO: AOx3. SKIN: No rash or erythema of visible areas Initial Vital Signs Initial Vital Signs: Vital Signs Temperature 98.1 F 09/30/20 17:28 Pulse Rate 93 H 09/30/20 17:28 Respiratory Rate 20 09/30/20 17:28 Blood Pressure 161/96 H 09/30/20 17:28 Pulse Oximetry 100 09/30/20 17:28 Course Orders Ordered: ED Orders 09/30/20 17:50 Test Urine Stat Urine Culture Stat Urine Microscopic Stat 09/30/20 18:10 Complete Blood Count AUTO DIFF Stat Comprehensive Metabolic Panel Stat Lipase Stat Partial Thromboplastin Time Stat Prothrombin Time INR Stat 09/30/20 18:58 CT kidney ureter bladder (KUB) Stat Discontinued Medications Hydrocodone Bitart/Acetaminophen (Hydrocodone/Acet 5/325 Prepack) 1 bottle MISC SEEINSTR ONE Stop: 09/30/20 20:21 Last Admin: 09/30/20 20:25 Dose: 1 bottle Documented by: MATT Hydromorphone HCl (Hydromorphone 0.5 Mg Inj) 0.5 mg IV NOW ONE Stop: 09/30/20 20:20 Last Admin: 09/30/20 20:25 Dose: 0.5 mg Documented by: MATT Lactated Ringer's (Lactated Ringers) 1,000 mls @ 1,000 mls/hr IV BOLUS ONE Stop: 09/30/20 19:29 Last Infusion: 09/30/20 20:19 Dose: 0 mls/hr Documented by: Admin: 09/30/20 18:43 Dose: 1,000 mls/hr Documented by: STEPHAN Ceftriaxone Sodium/Dextrose (Rocephin) 1 gm in 50 mls @ 100 mls/hr IV NOW ONE Stop: 09/30/20 18:59 Last Infusion: 09/30/20 19:35 Dose: 0 mls/hr Documented by: Infusion: 09/30/20 19:34 Dose: 100 mls/hr Documented by: Infusion: 09/30/20 19:10 Dose: 0 mls/hr Documented by: Admin: 09/30/20 18:42 Dose: 100 mls/hr Documented by: STEPHAN Lidocaine HCl 7.3 ml/ Sodium (Chloride) 57.3 mls @ 343.8 mls/hr IV NOW ONE Stop: 09/30/20 19:14 Last Infusion: 09/30/20 19:47 Dose: 0 mls/hr Documented by: Admin: 09/30/20 19:29 Dose: 343.8 mls/hr Documented by: MATT Ketorolac Tromethamine (Ketorolac 60 Mg/2 Ml Vial) 15 mg IV NOW ONE Stop: 09/30/20 18:31 Last Admin: 09/30/20 18:42 Dose: 15 mg Documented by: STEPHAN Ondansetron HCl (Ondansetron 4 Mg/2 Ml Inj) 4 mg IV Q4HR PRN PRN Reason: Nausea And Vomiting Last Admin: 09/30/20 18:42 Dose: 4 mg Documented by: STEPHAN Ondansetron HCl (Ondansetron 4 Mg Odt Prepack) 1 bottle MISC SEEINSTR ONE Stop: 09/30/20 20:21 Last Admin: 09/30/20 20:25 Dose: 1 bottle Documented by: MATT Vital Signs Vital signs: Vital Signs - 8 hr 09/30/20 17:28 09/30/20 20:33 Temperature 98.1 F Pulse Rate 93 H 84 Respiratory Rate 20 16 Blood Pressure 161/96 H 127/77 Pulse Oximetry 100 96 MDM - Abdominal Pain Lab Data Result diagrams: 09/30/20 18:10 09/30/20 18:10 Labs: Lab Results 09/30/20 09/30/20 09/30/20 Range/Units 17:50 17:50 17:50 WBC (4.5-11.0) X10^3/uL RBC (4.0-5.2) X10^6/uL Hgb (12.0-16.0) g/dL Hct (36-46) % MCV (80-100) fL MCH (26-34) PG MCHC (30-36) % RDW (11.6-14.8) % Plt Count (150-400) X10^3/uL Neut % (Auto) (50-75) % Lymph % (Auto) (25-40) % [place] % (Auto) (3-14) % Eos % (Auto) (2-4) % Baso % (Auto) (0-2) % Neut # (Auto) (2820-8228) /uL Lymph # (Auto) (0504-5545) /uL [place] # (Auto) (0-900) /uL Eos # (Auto) (0-450) /uL Baso # (Auto) (0-100) /uL PT (10.1-12.7) SECONDS INR (0.9-1.3) APTT (26.4-36.2) SECONDS Sodium (137-145) mmol/L Potassium (3.4-5.1) mmol/L Chloride (98-107) mmol/L Carbon Dioxide (22-32) mmol/L BUN (7-17) mg/dL Creatinine (0.52-1.04) mg/dL Estimated GFR (>60) mL/min BUN/Creatinine Ratio (6-22) Glucose (70-100) mg/dL Calcium (8.4-10.2) mg/dL Total Bilirubin (0.2-1.3) mg/dL AST (14-36) IU/L ALT (<35) IU/L Alkaline Phosphatase (38-126) U/L Total Protein (6.3-8.2) g/dL Albumin (3.5-5.0) g/dL Globulin (1.7-4.1) g/dL Albumin/Globulin Ratio (1.0-2.8) Lipase (23-300) U/L Urine RBC >100/hpf H Cancelled (0-5/HPF) Urine WBC 10-30/hpf H Cancelled (0-5/HPF) Ur Squamous Epith Cells 10-30 /hpf H D Cancelled (0-5/HPF) Ur Transition Epith Cell Cancelled Ur Renal Epithelial Cell Cancelled Calcium Oxalate Crystal Moderate H Cancelled Uric Acid Crystals Cancelled Triple Phos Crystals Cancelled Other Crystals Cancelled Amorphous Sediment Cancelled Urine Bacteria Few (2-10) H Cancelled (None) Hyaline Casts Cancelled Granular Casts Cancelled RBC Casts Cancelled WBC Casts Cancelled Other Casts Cancelled Urine Mucus Cancelled Urine Trichomonas Cancelled Urine Yeast Cancelled Urine Sperm Cancelled Ur Culture Indicated? Specimen cultured Cancelled Micro UA Comment Cancelled Urine Test Negative (Negative) 09/30/20 09/30/20 09/30/20 Range/Units 18:10 18:10 18:10 WBC 14.5 H (4.5-11.0) X10^3/uL RBC 4.90 (4.0-5.2) X10^6/uL Hgb 13.4 (12.0-16.0) g/dL Hct 41.0 (36-46) % MCV 83.6 (80-100) fL MCH 27.4 (26-34) PG MCHC 32.8 (30-36) % RDW 14.4 (11.6-14.8) % Plt Count 324 (150-400) X10^3/uL Neut % (Auto) 81.6 H (50-75) % Lymph % (Auto) 12.6 L (25-40) % [place] % (Auto) 4.3 (3-14) % Eos % (Auto) 1.3 L (2-4) % Baso % (Auto) 0.2 (0-2) % Neut # (Auto) 21519 H (4073-6748) /uL Lymph # (Auto) 1800 (9125-0240) /uL [place] # (Auto) 600 (0-900) /uL Eos # (Auto) 200 (0-450) /uL Baso # (Auto) 0 (0-100) /uL PT 11.5 (10.1-12.7) SECONDS INR 1.0 (0.9-1.3) APTT 34 (26.4-36.2) SECONDS Sodium 139 (137-145) mmol/L Potassium 4.4 (3.4-5.1) mmol/L Chloride 107 (98-107) mmol/L Carbon Dioxide 24 (22-32) mmol/L BUN 16 (7-17) mg/dL Creatinine 0.98 (0.52-1.04) mg/dL Estimated GFR > 60.0 (>60) mL/min BUN/Creatinine Ratio 16.3 (6-22) Glucose 105 H (70-100) mg/dL Calcium 9.6 (8.4-10.2) mg/dL Total Bilirubin 0.3 (0.2-1.3) mg/dL AST 38 H (14-36) IU/L ALT 19 (<35) IU/L Alkaline Phosphatase 72 (38-126) U/L Total Protein 7.9 (6.3-8.2) g/dL Albumin 4.7 (3.5-5.0) g/dL Globulin 3.2 (1.7-4.1) g/dL Albumin/Globulin Ratio 1.5 (1.0-2.8) Lipase 86 (23-300) U/L Urine RBC (0-5/HPF) Urine WBC (0-5/HPF) Ur Squamous Epith Cells (0-5/HPF) Ur Transition Epith Cell Ur Renal Epithelial Cell Calcium Oxalate Crystal Uric Acid Crystals Triple Phos Crystals Other Crystals Amorphous Sediment Urine Bacteria (None) Hyaline Casts Granular Casts RBC Casts WBC Casts Other Casts Urine Mucus Urine Trichomonas Urine Yeast Urine Sperm Ur Culture Indicated? Micro UA Comment Urine Test (Negative) Point of care testing: Urine Dip Bedside Urine Glucose Negative Bedside Urine Bilirubin - Negative Bedside Urine Ketone - Negative Urine Specific Neon 1.030 Bedside Urine Occult Blood +++ Bedside Urine pH 6 Bedside Urine Protein + 30 Bedside Urine Urobilinogen - Negative Bedside Urine Nitrite - Negative Bedside Urine Leukocytes + [address] scan - abdomen/pelvis: Radiologist's Impression: Chart Viewer Diagnostics DATE TYPE STATUS REF RANGE/AUTHOR Hx 09/30/20 18:58 Hakan Low 08/28/20 19:38 Shane Vergara 05/01/20 11:46 02/11/20 12:17 Oz Logan 12/10/19 11:16 John Romero 09/23/19 10:42 iVc Nguyen Kylee M 25, F005/21/1995 [facility], [facility] ED 97.522kg Abdominal Pain Search Chart No Data to Display Total Pending Discharge Typical symptoms sneezing and congestion ONSET 11/06/17 11/06/17 09/30/20 20:33 Annie Rosario 25 F [address] [id number] Scan ReportSigned Patient: Annie Rosario MMR#: [id number]: [id number]:[id number]/Sex: 25 / FDate of Service: 09/30/20Loc: EDAccession Number: [id number] Procedure: CT kidney ureter bladder (KUB) Ordering Provider: Stephane Burks D.O. PROCEDURE: CT KIDNEY URETER BLADDER (KUB) INDICATIONS: severe flank pain, N/V, leukocytosis TECHNIQUE: Noncontrast 5 mm thick sections acquired from the diaphragms to the symphysis. 5 mm thick coronal and sagittal reformats were then performed. For radiation dose reduction, the following was used: automated exposure control, adjustment of mA and/or kV according to patient size. COMPARISON: [facility], CT, KIDNEY/ URETER/BLADDER, 02/27/2013, 17:46. FINDINGS: Image quality: Excellent. Lung bases: Lung bases are clear. Heart size is normal. Urinary system: Mild left hydroureteronephrosis and perinephric and periureteral stranding related to a 3 mm calculus seen just at the ureterovesical junction image 90/2. Additional 1 mm bilateral renal calculi are seen Other solid organs: Liver is normal in size. Gallbladder is surgically absent. Pancreas is normal in contours. Spleen is normal in size. No adrenal nodules. Peritoneum and bowel: Unenhanced bowel loops demonstrate normal wall thickness and caliber. No free fluid or air. Normal appendix. Nodes and vessels: No retroperitoneal or mesenteric adenopathy by size criteria. Aorta and inferior vena cava are normal in caliber. Abdominal wall: No ventral hernias. Pelvis: No free pelvic fluid. No inguinal hernias or adenopathy. Bones: No suspicious bony lesions. No vertebral body compression fractures. IMPRESSION: Mildly obstructive 3 mm calculus seen at the left ureterovesical junction. Additional mild 1 mm bilateral nephrolithiasis Dictated by: Hakan Low M.D. on 09/30/2020 at 19:35 Approved by: Hakan Low M.D. on 09/30/2020 at 19:38 MDM Narrative Medical decision making narrative: Patient with signs and symptoms as well as CT consistent with kidney stone. Pain is well controlled and she shows no sign of sepsis. She had a near complete resolution of symptoms after the lidocaine drip. Her urine does show some leukocytes and she has a slight elevation in her white blood cells hence the decision to administer antibiotics in addition to the classic kidney stone therapies. She has been given return precautions and has had questions answered to her apparent satisfaction. Discharge Plan Departure Patient Disposition: Home Clinical Impression: Kidney stone on left side Instructions: DI for Kidney Stones Activity Restrictions/Additional Instructions: *You have been diagnosed with [left-sided kidney stone] *What to do: *Take medications as directed *Follow up with your primary care provider in 2-3 days, call for an appointment. Let them know you were seen in the Emergency Department and that we ask that you be seen in follow up *Return to ER if you should have any new, worsening or concerning symptoms, such as [increasing pain, persistent vomiting, fever > 101F, or other bothersome symptoms ] You have been prescribed narcotic medications. While on these medications you cannot drive or operate heavy machinery. Additionally you cannot sign legal documents or perform any duties such as this. 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 Please note that hydrocodone will likely enter the breast milk so it is advised to pump and dump for 24 hours after taking it Please understand that we cannot provide further refills of narcotics or controlled substances through the ED and your pain management will need to be through your Primary Care Provider Prescriptions: New hydrocodone-acetaminophen 5-325 mg tablet 1 tab PO Q4-6H PRN (Reason: pain) Qty: 10 RF: 0 ketorolac 10 mg tablet 10 mg PO Q6H PRN (Reason: pain) Qty: 14 RF: 0 cephalexin [Keflex] 500 mg capsule 500 mg PO BID Qty: 10 RF: 0 No Action norethindrone (contraceptive) 0.35 mg tablet 0.35 mg PO DAILY Qty: 84 RF: 3 prenat.vits,jose alejandro,nyq-wbnt-cbxre tablet 1 tab PO DAILY RF: 0 oxycodone 5 mg tablet See Rx Instructions .ROUTE .COMPLEX PRN (Reason: painful procedure) Qty: 14 RF: 0 metformin 500 mg tablet 250 mg PO BID RF: 0 Referrals: Deepika Page DO [Primary Care Provider] -
[2020-09-30] MEDS: CEFTRIAXONE 1 GM/50 ML FROZ.PIGGY IV (18:42)
[2020-09-30] MEDS: KETOROLAC 60 MG/2 ML VIAL 15 MG IV (18:42)
[2020-09-30] MEDS: ONDANSETRON 4 MG/2 ML INJ IV (18:42)
[2020-09-30] MEDS: LACTATED RINGERS 1,000 ML 1000 ML IV (18:43)
[2020-09-30 18:53] LABS: Prothrombin Time 11.5 SECONDS (10.1-12.7)
[2020-09-30 18:54] LABS: Add Manual Diff / Slide Review NO; Basophils Absolute Auto 0 /uL (0-100); Basophils Percent Auto 0.2 % (0-2); Eosinophils Absolute Auto 200 /uL (0-450); Eosinophils Percent Auto 1.3 % (2-4); Hemoglobin 13.4 g/dL (12.0-16.0); Lymphocytes Absolute Auto 1800 /uL (1100-4500); Lymphocytes Percent Auto 12.6 % (25-40); Mean Corpuscular HGB Conc 32.8 % (30-36); Mean Corpuscular Hemoglobin 27.4 PG (26-34); Mean Corpuscular Volume 83.6 fL (80-100); Monocytes Absolute Auto 600 /uL (0-900); Monocytes Percent Auto 4.3 % (3-14); Neutrophils Absolute Auto 11800 /uL (1500-7000); Neutrophils Percent Auto 81.6 % (50-75); Platelet Count 324 X10^3/uL (150-400); Red Cell Distribution Width 14.4 % (11.6-14.8); White Blood Cell Count 14.5 X10^3/uL (4.5-11.0)
[2020-09-30 18:56] LABS: PTT Partial Thromboplastin Tim 34 SECONDS (26.4-36.2)
[2020-09-30 18:57] LABS: Alanine Aminotransferase 19 IU/L (<35); Albumin 4.7 g/dL (3.5-5.0); Albumin Globulin Ratio 1.5 (1.0-2.8); Alkaline Phosphatase 72 U/L (38-126); Aspartate Aminotransferase 38 IU/L (14-36); BUN Creatinine Ratio 16.3 (6-22); Bilirubin Total 0.3 mg/dL (0.2-1.3); Blood Urea Nitrogen 16 mg/dL (7-17); Calcium 9.6 mg/dL (8.4-10.2); Carbon Dioxide 24 mmol/L (22-32); Chloride 107 mmol/L (98-107); Estimated Glomerular Filt Rate > 60.0 mL/min (>60); Globulin 3.2 g/dL (1.7-4.1); Glucose 105 mg/dL (70-100); Lipase 86 U/L (23-300); Potassium 4.4 mmol/L (3.4-5.1); Sodium 139 mmol/L (137-145); Total Protein 7.9 g/dL (6.3-8.2)
[2020-09-30 18:58] LABS: HEMOLYSIS 64 (0-50)
--- NOTE | 2020-09-30 18:58 | DI.CT.S_ITS ---
PROCEDURE: CT KIDNEY URETER BLADDER (KUB) INDICATIONS: severe flank pain, N/V, leukocytosis TECHNIQUE: Noncontrast 5 mm thick sections acquired from the diaphragms to the symphysis. 5 mm thick coronal and sagittal reformats were then performed. For radiation dose reduction, the following was used: automated exposure control, adjustment of mA and/or kV according to patient size. COMPARISON: [facility], CT, KIDNEY/ URETER/BLADDER, 02/27/2013, 17:46. FINDINGS: Image quality: Excellent. Lung bases: Lung bases are clear. Heart size is normal. Urinary system: Mild left hydroureteronephrosis and perinephric and periureteral stranding related to a 3 mm calculus seen just at the ureterovesical junction image 90/2. Additional 1 mm bilateral renal calculi are seen Other solid organs: Liver is normal in size. Gallbladder is surgically absent. Pancreas is normal in contours. Spleen is normal in size. No adrenal nodules. Peritoneum and bowel: Unenhanced bowel loops demonstrate normal wall thickness and caliber. No free fluid or air. Normal appendix. Nodes and vessels: No retroperitoneal or mesenteric adenopathy by size criteria. Aorta and inferior vena cava are normal in caliber. Abdominal wall: No ventral hernias. Pelvis: No free pelvic fluid. No inguinal hernias or adenopathy. Bones: No suspicious bony lesions. No vertebral body compression fractures. IMPRESSION: Mildly obstructive 3 mm calculus seen at the left ureterovesical junction. Additional mild 1 mm bilateral nephrolithiasis Dictated by: Hakan Low M.D. on 09/30/2020 at 19:35 Approved by: Hakan Low M.D. on 09/30/2020 at 19:38
[2020-09-30 19:02] LABS: Bacteria Urine Few (2-10); Calcium Oxalate Crystals Urine Moderate; RBC Urine >100/HPF (0-5/HPF); Squamous Epithelial Cell Urine 10-30 /HPF (0-5/HPF); WBC Urine 10-30/HPF (0-5/HPF)
[2020-09-30 19:03] LABS: Culture Indicated Urine Specimen Cultured
[2020-09-30 19:07] LABS: Pregnancy Test Urine Negative (Negative)
[2020-09-30] MEDS: LIDOCAINE 2% IV (19:29)
[2020-09-30] MEDS: SODIUM CHLORIDE 0.9% IV (19:29)
[2020-09-30] MEDS: HYDROMORPHONE 0.5 MG INJ IV (20:25)
[2020-09-30] MEDS: HYDROCODONE/ACET 5/325 PREPACK 1 BOTTLE MISC (20:25)
[2020-09-30] MEDS: ONDANSETRON 4 MG ODT PREPACK 1 BOTTLE MISC (20:25)
[2020-09-30 20:33] VITALS: BP 127/77; PULSE 84; RESP 16; O2SAT 96
== END 2020-09-30 21:02 | disposition home or self-care (01) ==
PROVIDERS: Emergency Medicine; Emergency Provider Emergency Medicine; PCP Family Medicine
DX: N20.0 Calculus of kidney (principal); E28.2 Polycystic ovarian syndrome; R11.2 Nausea with vomiting, unspecified; Z87.442 Personal history of urinary calculi; D72.829 Elevated white blood cell count, unspecified
CPT/HCPCS: 36415; 74176; 80053; 81003; 81015; 81025; 83690; 85025; 85610; 85730; 87086; 96361; 96365; 96367; 96375; 99281; 99284; J1170; J1885; J2405

== ENCOUNTER → 2021-01-04 12:06 | Outpatient (CLI) | payer OTHER, SELFPAY ==
[2021-01-04] MEDS: COVID-19 VACC #1, MRNA(MOD) 100 MCG/0.5 ML VIAL IM (12:13)
== END ==
PROVIDERS: PCP Family Medicine; Visit Provider Internal Medicine
DX: Z23 Encounter for immunization (principal)
CPT/HCPCS: 0011A; 91301

== ENCOUNTER → 2021-02-09 12:18 | Outpatient (CLI) | payer OTHER, SELFPAY ==
[2021-02-09] MEDS: COVID-19 VACC #2, MRNA(MOD) 100 MCG/0.5 ML VIAL IM (12:27)
== END ==
PROVIDERS: PCP Family Medicine; Visit Provider Internal Medicine
DX: Z23 Encounter for immunization (principal)
CPT/HCPCS: 0012A; 91301

== ENCOUNTER → 2021-11-09 13:17 | Outpatient (ROUT) | payer BC, SELFPAY ==
[2021-11-15 13:39] LABS: Ca oxalate dihydrate 100 % (.); Size 4x3 mm (.)
== END ==
PROVIDERS: PCP Family Medicine; Visit Provider Family Medicine
DX: N20.0 Calculus of kidney (principal)
CPT/HCPCS: 82365

== ENCOUNTER → 2022-09-09 11:23 | Outpatient (CLI) | payer BC, SELFPAY ==
[2022-09-09 12:04] LABS: Add Manual Diff / Slide Review NO; Basophils Absolute Auto 100 /uL (0-100); Basophils Percent Auto 0.6 % (0-2); Eosinophils Absolute Auto 200 /uL (0-450); Eosinophils Percent Auto 1.9 % (2-4); Hematocrit 40.7 % (36-46); Hemoglobin 13.9 g/dL (12.0-16.0); Lymphocytes Absolute Auto 1900 /uL (1100-4500); Lymphocytes Percent Auto 21.6 % (25-40); Mean Corpuscular HGB Conc 34.1 % (30-36); Mean Corpuscular Hemoglobin 29.4 PG (26-34); Mean Corpuscular Volume 86.2 fL (80-100); Monocytes Absolute Auto 400 /uL (0-900); Monocytes Percent Auto 5.1 % (3-14); Neutrophils Absolute Auto 6100 /uL (1500-7000); Neutrophils Percent Auto 70.8 % (50-75); Platelet Count 213 X10^3/uL (150-400); Red Blood Cell Count 4.72 X10^6/uL (4.0-5.2); Red Cell Distribution Width 13.7 % (11.6-14.8); White Blood Cell Count 8.7 X10^3/uL (4.5-11.0)
[2022-09-09 12:58] LABS: Appearance Urine UA CLEAR; Bilirubin Urine UA NEGATIVE (NEGATIVE); Color Urine UA YELLOW; Glucose Urine UA NEGATIVE (Negative); Ketones Urine UA NEGATIVE (NEGATIVE); Leukocyte Esterase Urine UA NEGATIVE (NEGATIVE); Nitrite Urine UA NEGATIVE (Negative); Occult Blood Urine UA NEGATIVE (Negative); Protein Urine UA NEGATIVE (Negative); Specific Gravity Urine UA <=1.005 (1.000-1.035); Urobilinogen Urine UA 0.2 E.U./dL (0.2)
[2022-09-09 12:59] LABS: pH Urine UA 6.5 (4.5-8.0)
[2022-09-09 15:33] LABS: Hepatitis B Surface Antigen NEGATIVE s/c (NEGATIVE); Rubella Antibody IgG 24.4 IU/mL (>15)
[2022-09-09 15:56] LABS: HIV 1 & 2 Ab/Ag 4th Gen Combo NEGATIVE (NEGATIVE); Hep C Virus Ab w/Reflex Quant NEGATIVE s/c (NEGATIVE)
[2022-09-10 08:25] LABS: Varicella IgG Antibody 416 index (Immune >165)
[2022-09-11 03:39] LABS: RPR Screen Non Reactive (Non Reactive)
== END ==
PROVIDERS: PCP Family Medicine; Referring Provider Obstetrics & Gynecology; Visit Provider Obstetrics & Gynecology
DX: Z34.81 Encounter for supervision of other normal pregnancy, first trimester (principal)
CPT/HCPCS: 36415; 80055; 81003; 86787; 86803; 86850; 86900; 86901; 87086; 87389

== ENCOUNTER → 2022-10-10 10:51 | Outpatient (CLI) | payer BC, SELFPAY ==
[2022-10-10 14:15] LABS: Urine N gonorrhoeae NOT DETECTED
[2022-10-10 14:16] LABS: Urine Chlamydia NOT DETECTED
[2022-10-11 09:36] LABS: Candida species Positive (Negative); Gardnerella vaginalis Negative (Negative); Trichomoas vaginalis Negative (Negative)
[2022-10-12 20:17] LABS: AFP, Serum 62.8 ng/mL (.); Estriol, Free 1.97 ng/mL (.); Inhibin A, Dimeric 92.75 pg/mL (.); Inhibin A, MoM 0.63 (.); Maternal Ethnicity Caucasian (.); Maternal Weight 218 lbs (.); Number of Fetuses No (.); OSBR Risk 1 IN 4151 (.); Results Report (.); Test Results *Screen Negative* (.); hCG, MoM 0.83 (.); hCG, Serum 17426 mIU/mL (.)
== END ==
PROVIDERS: Physician Assistant Medical; PCP Family Medicine; Referring Provider Obstetrics & Gynecology; Visit Provider Obstetrics & Gynecology
DX: Z34.82 Encounter for supervision of other normal pregnancy, second trimester (principal); Z3A.19 19 weeks gestation of pregnancy
CPT/HCPCS: 36415; 82105; 82677; 84702; 86336; 87086; 87147; 87480; 87491; 87510; 87591; 87660

== ENCOUNTER → 2022-10-11 10:24 | Outpatient (CLI) | payer BC, SELFPAY ==
--- NOTE | 2022-10-11 10:25 | DI.US.S_ITS ---
PROCEDURE: US OB >= 14 WEEKS FETUS INDICATIONS: ANATOMY OUTSIDE/PRIOR DATING DATA: Last menstrual period (LMP): 05/18/2022. LMP-based estimated date of delivery (BOAZ): 02/22/2023. First dating scan (date and location): 07/19/2022. Estimated date of delivery (BOAZ) from first dating scan: 02/28/2023. The calculations are made using the clinical BOAZ of 02/22/2023. TECHNIQUE: Real-time scanning was performed of the fetus, with image documentation and biometric measurements. COMPARISON: [facility], OB >= 14 WEEKS FETUS, 12/10/2019, 11:41. FINDINGS: General: A single living intrauterine gestation is present. Presentation: Breech. Placenta: Placental position is anterior , without previa. Amniotic fluid index: 11.1 cm, normal range is 5-24 cm. Single deepest vertical pocket is 3.9 cm. heart rate: 162 beats per minute. Maternal cervical canal: 3.2 cm long. Normal lower limit is 2.5 cm. biometrics: Biparietal diameter: 4.6 cm, 19 weeks 6 days Head circumference: 17.6 cm, 20 weeks 1 day Abdominal circumference: 15 cm, 20 weeks 2 days Femur length: 3.2 cm, 20 weeks 1 day Clinically estimated gestational age: 20 weeks 6 days Composite gestational age from present scan: 20 weeks 1 day Estimated weight and percentile: 336 g, 14th percentile Anatomic survey: Neuro: Ventricles are non-dilated at less than 10 mm. Cisterna magna is normal at 3-11 mm. Cerebellum is normal in size and morphology. Nuchal skin fold: Normal at less than 6 mm between 14-21 weeks gestational age. Face: Nose and lips, facial profile are normal. Spine: No evidence for spina bifida. Heart: 4-chambered heart is present, with normal ventricular outflow tracts. Diaphragm: Diaphragm is intact. Stomach: Left-sided stomach is present. Kidneys: No hydronephrosis. Normal is less than 5 mm in 2nd trimester, less than 7 mm in 3rd trimester. Cord: 3-vessel cord has orthotopic insertion. Bladder: Normal in size. Extremities: All 4 extremities identified. IMPRESSION: 1. Garcia living intrauterine at 20 weeks 1 day based on today's ultrasound. This is concordant with the prior dating. Fetus is in the 14th percentile for weight. 2. Normal placenta and amniotic fluid. 3. Normal and complete anatomic survey. We strive to produce accurate, complete, and clear reports of imaging services. To assist us in improving patient care, this report was composed using standard report templates and voice recognition software. Therefore, it may contain abnormal punctuation, insertions and/or omissions. Occasional wrong-word or sound-alike substitutions may occur. Though we review the report and make efforts to correct it, we do recommend that the report be read carefully in proper context to recognize any text inaccuracies. Dictated by: John Romero M.D. on 10/11/2022 at 13:47 Approved by: John Romero M.D. on 10/11/2022 at 13:50
== END ==
PROVIDERS: PCP Family Medicine; Referring Provider Obstetrics & Gynecology; Visit Provider Obstetrics & Gynecology
DX: Z34.02 Encounter for supervision of normal first pregnancy, second trimester (principal); Z3A.20 20 weeks gestation of pregnancy
CPT/HCPCS: 76811

== ENCOUNTER → 2022-11-26 11:43 | Outpatient (CLI) | payer BC, SELFPAY ==
[2022-11-26 13:27] LABS: Hematocrit 35.8 % (36-46); Hemoglobin 12.4 g/dL (12.0-16.0)
[2022-11-26 13:36] LABS: GTT (PREG) 1 Hour PP 50gm Dose 122 mg/dL (76-139)
== END ==
PROVIDERS: PCP Family Medicine; Referring Provider Obstetrics & Gynecology; Visit Provider Obstetrics & Gynecology
DX: Z34.82 Encounter for supervision of other normal pregnancy, second trimester (principal); Z3A.26 26 weeks gestation of pregnancy
CPT/HCPCS: 36415; 82950; 85014; 85018

== ENCOUNTER 2023-02-04 16:26 | Observation (INO) | payer BC, SELFPAY ==
[2023-02-04 17:17] LABS: Appearance Urine UA CLEAR; Bilirubin Urine UA NEGATIVE (NEGATIVE); Color Urine UA YELLOW; Glucose Urine UA NEGATIVE (Negative); Ketones Urine UA 2+ (NEGATIVE); Leukocyte Esterase Urine UA TRACE (NEGATIVE); Nitrite Urine UA NEGATIVE (Negative); Occult Blood Urine UA TRACE-INTACT (Negative); Protein Urine UA NEGATIVE (Negative); Specific Gravity Urine UA 1.025 (1.000-1.035); Urobilinogen Urine UA 0.2 E.U./dL (0.2)
[2023-02-04 17:26] LABS: RBC Urine 1-5/HPF (0-5/HPF)
--- NOTE | 2023-02-04 17:26 | DI.US.S_ITS ---
PROCEDURE: US RENAL COMPLETE INDICATIONS: CVA pain, r/o kidney stones TECHNIQUE: Real-time scanning was performed of the kidneys and bladder, with image documentation. COMPARISON: [facility], CT, CT KIDNEY URETER BLADDER (KUB), 09/30/2020, 18:59. [facility], US, US RENAL COMPLETE, 02/11/2020, 12:26. FINDINGS: Poor image quality suspect technically challenging examination due to patient body habitus Kidneys: Kidneys are normal in size. Right kidney measures 11.7 cm long; left kidney measures 10.0 cm long. Mild right hydronephrosis, possible minimal left hydronephrosis. Possible nonobstructing right renal stones present largest measuring 1.3 cm. Nonobstructing left renal stones likely present largest measuring 1.4 cm. Bladder: Not evaluated IMPRESSION: Limited examination due to technical factors as above. Possible bilateral nonobstructing renal stones and mild right and minimal left hydronephrosis. Dictated by: Paul Carrillo M.D. on 02/04/2023 at 20:38 Approved by: Paul Carrillo M.D. on 02/04/2023 at 20:46
[2023-02-04 17:27] LABS: Bacteria Urine Moderate (10-30); Culture Indicated Urine Cult Not Indicated; Squamous Epithelial Cell Urine 10-30 /HPF (0-5/HPF); WBC Urine 1-5/HPF (0-5/HPF)
--- NOTE | 2023-02-04 17:27 | PM.OBTRLD ---
Visit Information Visit Information Date of evaluation: 02/04/23 Primary OB Provider: Olinda Renee On-call OB Provider: Elizabeth Pelletier Comments/Additional reasons for admission: Pt is a 27yo at 36w4d here with severe back pain. Pt reports the pain started around 1pm. It was initially constant, now coming more in waves. It is primarily right-sided, started under her ribs and radiating down. She denies any vaginal bleeding, LOF, dysuria, constipation. She has been having chills intermittently. She is having lower abdominal cramping that comes and goes as well, relatively mild. The pt does have a hx of kidney stones, most recently in 2020. COUNTS INCLUDE 234 BEDS AT THE [facility] Medical History (Updated 09/10/22 @ 11:23 by Trav Ochoa MD) Allergy Cholelithiasis and cholecystitis without obstruction Infertility PCOS (polycystic ovarian syndrome) Pneumonia Spontaneous vaginal delivery Surgical History (Updated 02/05/23 @ 10:13 by Elizabeth Pelletier MD) History of cholecystectomy History of third molar tooth extraction (~2010) History of tonsillectomy (~1997) Kidney stones (~2012) Family History (Updated 07/04/22 @ 13:12 by Pascale Simms RN) Mother Hyperthyroidism Migraine Father Diabetes mellitus Hypertension Hyperlipidemia Myocardial infarct S/P triple vessel bypass Grandmother Suicide Grandfather Unknown whether patient has any health problems Grandfather Unknown whether patient has any health problems Grandmother Kidney disease, chronic, end stage on dialysis Family/Other Diabetes mellitus Social History marital status: number of children: 0 household members: spouse and children lives independently: Yes housing: house pets and animals: No education level: college (mariel's degree) occupational status: employed (works from home) current occupational exposures/hazards: No special [place] needs: No travel history: recent (domestic only) and over 6 months ago seatbelt use: always helmet use: No (counseled to always wear helmets) water heater temp set < 120 deg: Yes working smoke detector in home: Yes fire extinguisher in home: Yes carbon monox detector in home: Yes firearms in home: No do you feel safe at home: Yes Smoking Status: Never smoker second hand exposure: No alcohol intake: never substance use type: does not use during the past year weight has: remained stable well-balanced diet: about half the time daily servings fruits/ve-4 caffeine: Yes Type(s) of exercise: none Objective Labs 02/04/23 19:20 Labs: Laboratory Results - last 24 hr 02/04/23 17:00 Urine Color Yellow Urine Appearance Clear Urine pH 6.0 Ur Specific [place] 1.025 Urine Protein Negative Urine Glucose (UA) Negative Urine Ketones 2+ H Urine Occult Blood Trace-intact Urine Nitrate Negative Urine Bilirubin Negative Urine Urobilinogen 0.2 Ur Leukocyte Esterase Trace H Evaluation Evaluation Baseline heart rate: 150 Variability: Moderate (11-25) monitor accelerations: Present Monitor Decelerations: Absent Contraction Frequency (minutes): 7 Category of Tracing: Reactive Diagnosis, Plan/Disposition Plan/Disposition Plan: 27yo at 36w4d here due to severe right sided back pain. Pt having contractions on monitoring as well. Appears dehydrated on U/A - drank copious water while in L&D. Not feeling contractions, no concerns for active labor. Renal u/s showed kidney stones, normal kidney function and without significant hydronephrosis. Pt stable for d/c home. Encouraged ongoing hydration. Pt declines pain medication, okay for Tylenol PRN. OB Disposition: home
[2023-02-04 19:54] LABS: BUN Creatinine Ratio 13.6 (6-22); Blood Urea Nitrogen 9 mg/dL (7-17); Calcium 9.6 mg/dL (8.4-10.2); Carbon Dioxide 22 mmol/L (22-32); Chloride 103 mmol/L (98-107); Estimated Glomerular Filt Rate > 60 mL/min (>60); Glucose 87 mg/dL (70-100); HEMOLYSIS < 15 (0-50); Potassium 3.8 mmol/L (3.4-5.1); Sodium 133 mmol/L (137-145)
== END 2023-02-04 21:00 | disposition home or self-care (01) ==
PROVIDERS: Family Medicine; Admitting Provider Obstetrics & Gynecology; PCP Family Medicine; Referring Provider Obstetrics & Gynecology; Visit Provider Obstetrics & Gynecology
DX: O26.893 Other specified pregnancy related conditions, third trimester (principal); M54.9 Dorsalgia, unspecified; N20.0 Calculus of kidney; Z3A.36 36 weeks gestation of pregnancy
CPT/HCPCS: 36415; 59025; 76770; 80048; 81001; G0378; G0379

== ENCOUNTER 2023-02-28 12:45 | Inpatient (IN) | payer BC, SELFPAY ==
[2023-02-28 13:35] VITALS: BP 119/61
[2023-02-28 14:04] LABS: Add Manual Diff / Slide Review NO; Basophils Absolute Auto 0 /uL (0-100); Basophils Percent Auto 0.2 % (0-2); Eosinophils Absolute Auto 100 /uL (0-450); Eosinophils Percent Auto 0.7 % (2-4); Hemoglobin 11.7 g/dL (12.0-16.0); Lymphocytes Absolute Auto 1700 /uL (1100-4500); Lymphocytes Percent Auto 18.7 % (25-40); Mean Corpuscular HGB Conc 34.5 % (30-36); Monocytes Absolute Auto 500 /uL (0-900); Neutrophils Absolute Auto 6700 /uL (1500-7000); Neutrophils Percent Auto 74.4 % (50-75); Platelet Count 208 X10^3/uL (150-400); Red Blood Cell Count 3.91 X10^6/uL (4.0-5.2); Red Cell Distribution Width 14.5 % (11.6-14.8)
[2023-02-28] MEDS: AMPICILLIN 2,000 MG in SODIUM CHLORIDE 0.9% 100 ML 200 MG IV (14:04)
[2023-02-28] MEDS: LACTATED RINGERS 1,000 ML 100 ML IV (14:04)
[2023-02-28] MEDS: AMPICILLIN 1,000 MG in SODIUM CHLORIDE 0.9% 100 ML 200 MG IV (18:05)
[2023-02-28] MEDS: OXYTOCIN PREMIX 30 UNIT/500 ML PLAST..BAG IV (20:17)
--- NOTE | 2023-02-28 20:17 | PM.OBHP.IH.1 ---
OB HPI Date/Time Date of admission: 02/28/23 Date Patient Seen: 02/28/23 Time Patient Seen: 18:30 History of Present Condition Chief complaint: INDUCTION BOAZ Calculator Estimated Delivery Date Method Current WG Current Estimate 02/28/23 Ultrasound #1 40w 0d Other Estimates 02/22/23 LMP (Certain) 40w 6d Estimated Gestational Age (weeks): 40 : 2 Para: 1 care: good care, initiated at week # (8), number of visits (13) and pounds weight gain (1) Dating criteria OB: LMP confirmed by 1st trimester US Ultrasounds: normal 1st trimester US and abnormal US findings (14%ile at 20 wks, normal growth on f/u ultrasounds) Obstetrical complications: other (GBS bacteruria) Medical complications OB: genitourinary (kidney stone at 36 weeks) Indications Indication for induction OB: maternal discomfort Preadmission Labs Last OB Lab Results: Blood Type O Positive 02/28/23 13:20 Antibody Screen Negative 02/28/23 13:20 Hematocrit 34.0 % (36-46) L 02/28/23 13:20 Hemoglobin 11.7 g/dL (12.0-16.0) L 02/28/23 13:20 Hepatitis B Surface Antigen Negative s/c (NEGATIVE) 09/09/22 11:54 Hepatitis C Antibody Negative s/c (NEGATIVE) 09/09/22 11:54 Rubella Antibody 24.4 IU/mL (>15) 09/09/22 11:54 Varicella-Zoster IgG Antibody 416 index (Immune >165) 09/09/22 11:54 Glucose 1 Hour 122 mg/dL (76-139) 11/26/22 12:55 Group B Streptococcus (PCR) Neg for grp b strep 04/06/20 10:29 -: Chlamydia screen: negative, Gonorrhea screen: negative and Urine: positive (GBS) -: PAP smear: Normal (07/23) Genetic Screens: Quad screen: Normal External Labs -: Urine: positive (GBS) Prior (ies) Past Pregnancies Del. Date GA/Weeks Labor Lgth Wt Sex Route Outcome Anesthesia Place Delv Breastfeed Preg Comp Name 05/08/20 41+1 9 8 lb 4.736 oz Female vaginal live - full term [facility] 8 months none Anaia Delivery Date: 05/08/20 Last Updated by: Deepika Page D.O. Deep second degree laceration Evaluation Evaluation Baseline heart rate: 135 Variability: Moderate (11-25) monitor accelerations: Present Monitor Decelerations: Absent Status: Category l Dilation (cm): 5 Effacement (%): 90 Dilation: >/=5 cm Effacement: >/=80% station: 0 Position of cervix: mid Consistency: soft Carreon score: 11 [facility] Medical History (Updated 09/10/22 @ 11:23 by Trav Ochoa MD) Allergy Cholelithiasis and cholecystitis without obstruction Infertility PCOS (polycystic ovarian syndrome) Pneumonia Spontaneous vaginal delivery Surgical History (Updated 02/05/23 @ 10:13 by Elizabeth Pelletier MD) History of cholecystectomy History of third molar tooth extraction (~2010) History of tonsillectomy (~1997) Kidney stones (~2012) Family History (Updated 07/04/22 @ 13:12 by Pascale Simms RN) Mother Hyperthyroidism Migraine Father Diabetes mellitus Hypertension Hyperlipidemia Myocardial infarct S/P triple vessel bypass Grandmother Suicide Grandfather Unknown whether patient has any health problems Grandfather Unknown whether patient has any health problems Grandmother Kidney disease, chronic, end stage on dialysis Family/Other Diabetes mellitus Social History marital status: number of children: 0 household members: spouse and children lives independently: Yes housing: house pets and animals: No education level: college (mariel's degree) occupational status: employed (works from home) current occupational exposures/hazards: No special [place] needs: No travel history: recent (domestic only) and over 6 months ago seatbelt use: always helmet use: No (counseled to always wear helmets) water heater temp set < 120 deg: Yes working smoke detector in home: Yes fire extinguisher in home: Yes carbon monox detector in home: Yes firearms in home: No do you feel safe at home: Yes Smoking Status: Never smoker second hand exposure: No alcohol intake: never substance use type: does not use during the past year weight has: remained stable well-balanced diet: about half the time daily servings fruits/ve-4 caffeine: Yes Type(s) of exercise: none Meds Home Medications and Allergies Home Medications Medication Instructions Recorded Confirmed Type prenat.vits,jose alejandro,lrv-yuon-xamvg 1 tab PO DAILY 04/19/19 02/28/23 History loratadine 10 mg tablet (Claritin) 10 mg PO DAILY 07/04/22 02/28/23 History metformin 500 mg tablet See Rx Instructions .Route 01/28/23 02/28/23 Rx .COMPLEX #180 tabs Allergies Allergy/AdvReac Type Severity Reaction Status Date / Time tree and shrub pollen Allergy Severe Typical Verified 02/24/23 15:03 symptoms sneezing and congestion OB Exam Narrative Exam Narrative: Generally: Patient is sitting up in bed, no acute distress Fundal height: 41 cm Estimated weight: 8-1/2 lb Extremities: Trace edema Objective Labs 02/28/23 13:20 Labs: Laboratory Results - last 24 hr 02/28/23 02/28/23 13:20 13:20 WBC 9.0 RBC 3.91 L Hgb 11.7 L Hct 34.0 L MCV 87.0 MCH 30.0 MCHC 34.5 RDW 14.5 Plt Count 208 Neut % (Auto) 74.4 Lymph % (Auto) 18.7 L [place] % (Auto) 6.0 Eos % (Auto) 0.7 L Baso % (Auto) 0.2 Neut # (Auto) 6700 Lymph # (Auto) 1700 [place] # (Auto) 500 Eos # (Auto) 100 Baso # (Auto) 0 Blood Type O Positive Antibody Screen Negative Assessment and Plan Assessment and Plan Assessment and Plan narrative: Assessment: 27 year old at 40 weeks gestation for induction of labor GBS bacteruria S/P 2 doses of antibiotics Plan: AROM with copious clear amniotic fluid Epidural as needed Expectant management to Time Spent with Patient Total time spent with greater than 50% in coordination of care (as documented) at patient's floor/unit and/or counseling patient:: 15-24 minutes
--- NOTE | 2023-02-28 22:41 | PM.AN.REGBLK ---
Regional Block Pre-procedure Procedure: Continuous Lumbar Epidural for L&D Attending OB provider: Olinda Renee Hx: No personal or family history of anesthesia problems. PSH/Anesthesia history narrative: Kidney stones, no anesthesia issues noted Exam narrative: Please see paper pre/post note ASA Class: II Labs: Hct 34.0 % (36-46) L 02/28/23 13:20 Plt Count 208 X10^3/uL (150-400) 02/28/23 13:20 Medications: Current Medications Generic Name Dose Route Start Last Admin Trade Name Freq PRN Reason Stop Dose Admin Carboprost Tromethamine 250 mcg 02/28/23 13:32 Carboprost 250 Mcg/Ml Ampul IM Q90M PRN Bleeding Diphenhydramine HCl 25 mg 02/28/23 21:42 Diphenhydramine 50 Mg/Ml Vial IV Q10M PRN Pruritis Ephedrine Sulfate 10 mg 02/28/23 21:42 Ephedrine 50 Mg/Ml Vial IV Q5M PRN Blood pressure decrease more than 20% of baseline. Fentanyl 50 mcg 02/28/23 13:32 Fentanyl 100 Mcg/2 Ml Inj IV Q1H PRN Pain, Moderate (4-6) Oxytocin/Lactated Ringer's 30 unit in 500 mls @ 200 mls/hr 02/28/23 13:32 Oxytocin Premix IV CONT PRN Bleeding Protocol Tranexamic Acid 1,000 mg/ 100 mls @ 200 mls/hr 02/28/23 13:32 Sodium Chloride IV NOW PRN Bleeding Oxytocin/Lactated Ringer's 30 unit in 500 mls @ 2 mls/hr 02/28/23 13:45 02/28/23 20:17 Oxytocin Premix IV 2 milliunit/min TITRATE ISIDRA 2 mls/hr Administration Protocol 2 MILLIUNIT/MIN Lactated Ringer's 1,000 mls @ 100 mls/hr 02/28/23 13:45 02/28/23 14:04 Lactated Ringers IV 100 mls/hr CONT ISIDRA Administration Ampicillin Sodium 1,000 mg/ 100 mls @ 200 mls/hr 02/28/23 18:00 02/28/23 18:05 Sodium Chloride IV 200 mls/hr Q4H ISIDRA Administration FENT 2MCG/ML BUPIV 0.125% EPI 200 mcg in 100 mls @ 10 mls/hr 02/28/23 21:45 Fentanyl/Bupiv/Ns 2mcg/Ml - 0.125% EPIDURAL CONT ISIDRA Lidocaine HCl 20 ml 02/28/23 13:32 Lidocaine 1% 20 Ml INJ INTRA-OP PRN Post Delivery Methylergonovine Maleate 0.2 mg 02/28/23 13:32 Methylergonovine 0.2 Mg Tablet PO Q6HR PRN Heavy Bleeding Methylergonovine Maleate 0.2 mg 02/28/23 13:32 Methylergonovine 0.2 Mg/Ml Vial IM NOW PRN Bleeding Misoprostol 800 mcg 02/28/23 13:32 Misoprostol 200 Mcg Tablet MA NOW PRN Bleeding Misoprostol 400 mcg 02/28/23 13:32 Misoprostol 200 Mcg Tablet SL NOW PRN Bleeding Nalbuphine HCl 2.5 mg 02/28/23 21:42 Nalbuphine 20 Mg/Ml Ampul IV Q10M PRN Pruritis Naloxone HCl 0.2 mg 02/28/23 13:32 Naloxone 0.4 Mg/Ml Vial IV Q2MIN PRN Opiate Reversal Oxytocin 10 unit 02/28/23 13:32 Oxytocin 10 Unit/Ml Vial IM NOW PRN Bleeding Allergies: Allergies Allergy/AdvReac Type Severity Reaction Status Date / Time tree and shrub pollen Allergy Severe Typical Verified 02/24/23 15:03 symptoms sneezing and congestion Procedure Insertion date: 02/28/23 Insertion time: 22:07 Prep/Local: 1% lidocaine (Chlorprep skin preparation with ample dry time, > 3 minutes. 3mL 1% skin localization) Interspace: L3-4 Patient position: sitting Needle: 18 gauge Gabe Loss of resistance with: saline (with air bubble) ARABELLA at (cm): 6 Catheter placed at SKIN (cm): 11 Catheter in SPACE (cm): 5 Insertion: No CSF, No Blood, Yes Paresthesia with insertion, No Paresthesia with injection and No Test dose reaction Initial Medications TEST DOSE time: 22:10 TEST DOSE: 1.5% lidocaine with epinephrine 1:200k (mL): 3 BOLUS DOSE time: 22:19 BOLUS DOSE (mL): 4 Infusion INFUSION: 0.125% bupivacaine and with fentanyl 2 mcg/mL Initial rate (mL/hr): 10 Subsequent interventions: Right sided paresthesia resolved with redirection, negative test dose. Patient then laid supine with hip bump, reporting significant low pressure. PCEA pump started at 2222. Dr Renee called to room, baby near , imminent delivery anticipated. 100 mcg PF fentanyl then administered with 5mL PF 2% plain lidocaine. Dr Renee present for delivery, please refer to her note. Post-procedure Anesthesia time START: 21:49 Anesthesia time END: 22:33 Post-procedure Anesthesia Assessment: Yes CV function: HR/BP stable, Yes Resp function: RR/sat/airway adequate, Yes Post-op hydration adequate, Yes Pain control adequate, Yes Nausea & vomiting absent, Yes Temperature > 36 C, Yes Mental status appropriate and Yes Anesthesia complications
--- NOTE | 2023-02-28 23:09 | PM.OBPRVD ---
Events: No Care Labor & Delivery Delivery date: 02/28/23 Intrapartal Events: None Cervical ripening method: none Induction method: per pitocin protocol Delivery augmentation: rupture of membranes Delivery monitor: external FHT and external uterine Route of delivery: Episiotomy description: None L&D Laceration Description: Periurethral - 1st Degree, Perineal - 2nd Degree and Vaginal - 2nd Degree Delivery repair: vicryl and chromic Quantitative Blood Loss: 100 Anesthesia Type: Epidural Complications: None Narrative: Patient complete and pushed with 1 contraction. At 10:33 p.m., a live male infant delivered spontaneously in the MARILYN presentation, over an intact perineum. No nuchal cord. The remainder of the body delivered without difficulty and was placed on mom's abdomen. Pitocin was given in the IV fluids. The cord was double clamped and cut after it stopped pulsing. Cord bloods were obtained. The placenta delivered intact with a three-vessel cord at 10:41 p.m.. Fundus was massaged to firm. A red rubber catheter was placed into the urethra. A first-degree periurethral laceration was repaired with 3-0 chromic in the usual fashion. A second-degree vaginal/perineal laceration was repaired with 0 Vicryl and 2-0 chromic in the usual fashion. Hemostasis was achieved. QBL 100 cc. Apgars 9 at 1 minute and 9 at 5 minutes. Epidural analgesia. . Mom and infant stable to recovery. Baby 1: gender: Male Presentation: vertex Position: Left Occiput Anterior Placenta delivery description: Spontaneous Cord Vessel Description: 3 Vessels and Clamped/Cut (after the cord stopped pulsing) score (1 min): 9 score (5 min): 9 weight: 8 lb 4.7 oz Plan for aftercare: Routine care
[2023-03-01] MEDS: ACETAMINOPHEN 325 MG TABLET 650 MG PO (04:36)
--- NOTE | 2023-03-01 12:10 | P.PNOB_ITS ---
Subjective - OB Subjective Patient comments: no complaints [place] baby status: doing well and nursing well [place] feeding status: exclusively breast feeding Date Patient Seen: 03/01/23 Time Patient Seen: 12:10 Interval history: going well. Bleeding tapering. Exam Narrative Exam Narrative: Generally: Patient walking around in room, no acute distress Fundus: Firm at U -1 Extremities: No edema, negative [place] Objective Labs 02/28/23 13:20 Labs: Laboratory Results - last 24 hr 02/28/23 02/28/23 13:20 13:20 WBC 9.0 RBC 3.91 L Hgb 11.7 L Hct 34.0 L MCV 87.0 MCH 30.0 MCHC 34.5 RDW 14.5 Plt Count 208 Neut % (Auto) 74.4 Lymph % (Auto) 18.[address] [place] % (Auto) 6.0 Eos % (Auto) 0.7 L Baso % (Auto) 0.2 Neut # (Auto) 6700 Lymph # (Auto) 1700 [place] # (Auto) 500 Eos # (Auto) 100 Baso # (Auto) 0 Blood Type O Positive Antibody Screen Negative Assessment & Plan Plan day: 1 plan OB: routine care Time Spent With Patient Time: Total time spent is greater than 50% in coordination of care (as documented) at patient's floor/unit and/or counseling patient: Time with patient: 15-24 minutes
[2023-03-02 11:53] VITALS: BP 119/61; PULSE 74; RESP 16; TEMP 36.6
== END 2023-03-02 11:25 | disposition home or self-care (01) | DRG 807 ==
PROVIDERS: Admitting Provider Obstetrics & Gynecology; PCP Family Medicine; Referring Provider Obstetrics & Gynecology; Visit Provider Obstetrics & Gynecology
DX: O98.82 Other maternal infectious and parasitic diseases complicating childbirth (principal); Z37.0 Single live birth; O99.824 Streptococcus B carrier state complicating childbirth; Z3A.40 40 weeks gestation of pregnancy; O70.1 Second degree perineal laceration during delivery; O70.0 First degree perineal laceration during delivery
CPT/HCPCS: 36415; 59050; 59400; 85025; 86850; 86900; 86901; G0378; G0379; J0290; J2590

== ENCOUNTER → 2023-06-10 09:23 | Outpatient (CLI) | payer OTHER, SELFPAY ==
--- NOTE | 2023-06-10 09:27 | DI.RAD.S_ITS ---
PROCEDURE: XR KNEE LT 3V INDICATIONS: knee pain TECHNIQUE: 3 views of the knee were acquired. COMPARISON: None. FINDINGS: Bones: No acute fractures or dislocations. No suspicious bony lesions. Soft tissues: No joint effusion. No suspicious soft tissue calcifications. IMPRESSION: No acute osseous abnormality. If the symptoms persist, consider cross sectional imaging such as MRI or CT for further assessment. Approved by: Paul Thomas M.D. on 06/10/2023 at 17:10
[2023-06-10 10:50] LABS: Hemoglobin A1C% w Est Avg Glu 5.2 % (4.0-6.0)
[2023-06-10 10:59] LABS: Alanine Aminotransferase 15 IU/L (<35); Albumin 4.4 g/dL (3.5-5.0); Albumin Globulin Ratio 1.5 (1.0-2.8); Alkaline Phosphatase 56 U/L (38-126); Aspartate Aminotransferase 25 IU/L (14-36); BUN Creatinine Ratio 17.7 (6-22); Bilirubin Total 0.5 mg/dL (0.2-1.3); Blood Urea Nitrogen 14 mg/dL (7-17); Calcium 9.8 mg/dL (8.4-10.2); Carbon Dioxide 24 mmol/L (22-32); Chloride 106 mmol/L (98-107); Cholesterol 218 mg/dL (140-199); Estimated Glomerular Filt Rate > 60 mL/min (>60); Glucose 95 mg/dL (70-100); HDL Cholesterol 55 mg/dL (40-60); HEMOLYSIS < 15 (0-50); LDL Cholesterol Calculated 131 mg/dL (<100); Potassium 3.9 mmol/L (3.4-5.1); Sodium 139 mmol/L (137-145); Total Protein 7.4 g/dL (6.3-8.2); Triglycerides 158 mg/dL (35-150)
== END ==
PROVIDERS: PCP Family Medicine; Referring Provider Family Medicine; Visit Provider Family Medicine
DX: M25.562 Pain in left knee (principal); E66.9 Obesity, unspecified
CPT/HCPCS: 36415; 73562; 80053; 80061; 83036

== ENCOUNTER → 2023-07-18 12:33 | Outpatient (CLI) | payer OTHER, SELFPAY | PROVIDERS: PCP Family Medicine; Visit Provider Family Medicine | DX: N64.4 Mastodynia (principal) | CPT/HCPCS: 87070; 87205 ==

== ENCOUNTER → 2023-07-19 14:18 | Outpatient (CLI) | payer OTHER, SELFPAY ==
--- NOTE | 2023-07-19 14:20 | DI.MRI.S_ITS ---
PROCEDURE: MR KNEE LT WO CON INDICATIONS: knee pain TECHNIQUE: Noncontrast sagittal PD fast spin echo and T2 fast spin echo with fat saturation, sagittal 3-D FLASH with fat saturation; coronal T1 spin echo and PD fast spin echo with fat saturation, and axial PD fast spin echo with fat saturation through the knee. COMPARISON: None. FINDINGS: Image quality: Excellent. Menisci: The medial and lateral menisci demonstrate normal morphology and internal signal. The meniscal root ligaments appear intact. Cruciate ligaments: The anterior cruciate ligament is mildly thickened. The posterior cruciate ligament is intact. Medial structures: The medial collateral ligament appears mildly thickened near its femoral insertion. Visualized portions of the pes anserinus tendons appear normal. No abnormal bursal fluid. Lateral structures: The lateral collateral ligament, long and short heads of the biceps femoris tendon appear intact. The popliteus tendon appears normal; the popliteofibular ligament appears intact. Delete Iliotibial band appears normal. Anterior structures: The quadriceps and patellar tendons appear intact. Patellar alignment is normal. No femoral trochlear dysplasia or ventral trochlear prominence. No edema in the infrapatellar fat pad. Bones and cartilage: No bone marrow contusions or fractures. 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 The cartilage of the medial and lateral femorotibial compartments appears normal in thickness. Joint space: There is small knee joint fluid. No Peres's cyst. Normal appearing synovial plicae are incidentally noted. IMPRESSION: 1. 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 No marrow edema. No fracture or dislocation. Small joint effusion, no gross loose bodies. 2. Suggestion of very low-grade ACL and MCL sprain. No full-thickness ligament rupture. 3. No evidence of focal meniscal tear. Dictated by: Randy Levy M.D. on 07/21/2023 at 8:44 Approved by: Randy Levy M.D. on 07/21/2023 at 8:52
== END ==
PROVIDERS: PCP Family Medicine; Referring Provider Family Medicine; Visit Provider Family Medicine
DX: M22.42 Chondromalacia patellae, left knee (principal); M25.562 Pain in left knee; M25.462 Effusion, left knee
CPT/HCPCS: 73721

== ENCOUNTER → 2024-08-03 09:49 | Outpatient (CLI) | payer OTHER, SELFPAY ==
--- NOTE | 2024-08-03 10:08 | DI.RAD.S_ITS ---
PROCEDURE: XR FOOT RT MIN 3V INDICATIONS: foot pain TECHNIQUE: 3 views of the foot were acquired. COMPARISON: None. FINDINGS: Bones: No fractures or dislocations. No suspicious bony lesions. Soft tissues: No tibiotalar joint effusion. Achilles tendon appears normal. IMPRESSION: No acute bony abnormality. Dictated by: Matt Tuttle M.D. on 08/03/2024 at 13:04 Approved by: Matt Tuttle M.D. on 08/03/2024 at 13:05
[2024-08-03 11:12] LABS: BUN Creatinine Ratio 20.8 (6-22); Blood Urea Nitrogen 16 mg/dL (7-17); Calcium 9.8 mg/dL (8.4-10.2); Carbon Dioxide 27 mmol/L (22-32); Chloride 104 mmol/L (98-107); Cholesterol 220 mg/dL (140-199); Estimated Glomerular Filt Rate > 60 mL/min (>60); Glucose 101 mg/dL (70-100); HDL Cholesterol 56 mg/dL (40-60); HEMOLYSIS 17 (0-50); LDL Cholesterol Calculated 124 mg/dL (<100); Sodium 137 mmol/L (137-145); Triglycerides 202 mg/dL (35-150)
[2024-08-03 11:18] LABS: Potassium 4.5 mmol/L (3.4-5.1)
[2024-08-03 13:19] LABS: Hemoglobin A1C% w Est Avg Glu 5.4 % (4.0-6.0)
== END ==
PROVIDERS: PCP Family Medicine; Referring Provider Family Medicine; Visit Provider Family Medicine
DX: B37.9 Candidiasis, unspecified (principal); M79.673 Pain in unspecified foot; E28.2 Polycystic ovarian syndrome
CPT/HCPCS: 36415; 73630; 80048; 80061; 83036; 87210

== ENCOUNTER → 2024-12-31 11:41 | Outpatient (CLI) | payer OTHER, SELFPAY ==
[2024-12-31 13:19] LABS: Hemoglobin A1C% w Est Avg Glu 5.1 % (4.0-6.0)
== END ==
PROVIDERS: PCP Family Medicine; Referring Provider Family Medicine; Visit Provider Family Medicine
DX: E28.2 Polycystic ovarian syndrome (principal); E66.9 Obesity, unspecified
CPT/HCPCS: 36415; 83036

== ENCOUNTER → 2025-04-04 15:46 | Outpatient (CLI) | payer OTHER, SELFPAY ==
[2025-04-04 17:52] LABS: Thyroid Stimulating Hormone 0.809 uIU/mL (0.47-4.68)
== END ==
PROVIDERS: PCP Family Medicine; Referring Provider Family Medicine; Visit Provider Family Medicine
DX: Z31.69 Encounter for other general counseling and advice on procreation (principal)
CPT/HCPCS: 36415; 84144; 84402; 84403; 84443; 84999

== ENCOUNTER → 2025-05-24 12:15 | Outpatient (CLI) | payer OTHER, SELFPAY ==
--- NOTE | 2025-05-24 12:17 | DI.US.S_ITS ---
PROCEDURE: US OB <= 14 WEEKS FETUS INDICATIONS: early bleeding OUTSIDE/PRIOR DATING DATA: Last menstrual period (LMP): 04/15/2025. LMP-based estimated date of delivery (BOAZ): 01/20/2026. First dating scan (date and location): 05/24/2025. TECHNIQUE: Real-time scanning was performed of the maternal pelvic organs, with image documentation. Endovaginal scanning was also performed to better visualize potential gestational sac and maternal ovaries. COMPARISON: None. FINDINGS: Uterus: Thickened endometrial complex which measures up to 14 mm in dimension. There is a a 3 mm anechoic focus within the endometrial complex which may represent endometrial cystic change versus a possible developing gestational sac. Maternal organs: In the right ovary, there is a 1.5 x 1.5 x 1.8 cm structure with central hypoechogenicity and i minimal increased peripheral vascularity on power Doppler. The right ovary measures 1.9 x 4 x 2.2 cm, volume of 9 cc. The left ovary measures 2.6 x 3.4 x 1.8 cm, with volume of 8 cc. There is flow on power Doppler bilaterally. IMPRESSION: of unknown location. The differential diagnosis includes nonvisualized early intrauterine , a nonvisualized ectopic , and early loss. Recommend correlation with trending serum beta HCG values and short interval follow-up pelvic ultrasound. We strive to produce accurate, complete, and clear reports of imaging services. To assist us in improving patient care, this report was composed using standard report templates and voice recognition software. Therefore, it may contain abnormal punctuation, insertions and/or omissions. Occasional wrong-word or sound-alike substitutions may occur. Though we review the report and make efforts to correct it, we do recommend that the report be read carefully in proper context to recognize any text inaccuracies. Dictated by: Que Mancia M.D. on 05/24/2025 at 14:47 Approved by: Que Mancia M.D. on 05/24/2025 at 14:53
[2025-05-24 14:05] LABS: HCG Quantitative /Beta subunit 43.27 mIU/mL
== END ==
PROVIDERS: PCP Family Medicine; Referring Provider Family Medicine; Visit Provider Family Medicine
DX: O36.80X0 Pregnancy with inconclusive fetal viability, not applicable or unspecified (principal); N93.9 Abnormal uterine and vaginal bleeding, unspecified
CPT/HCPCS: 36415; 76801; 76817; 84702

== ENCOUNTER → 2025-05-26 11:41 | Outpatient (CLI) | payer OTHER, SELFPAY ==
[2025-05-26 13:21] LABS: HCG Quantitative /Beta subunit 9.93 mIU/mL
== END ==
PROVIDERS: PCP Family Medicine; Referring Provider Family Medicine; Visit Provider Family Medicine
DX: Z34.90 Encounter for supervision of normal pregnancy, unspecified, unspecified trimester (principal)
CPT/HCPCS: 36415; 84702

== ENCOUNTER → 2025-07-12 09:28 | Outpatient (CLI) | payer OTHER, SELFPAY ==
[2025-07-12 11:01] LABS: HCG Quantitative /Beta subunit 4196.8 mIU/mL
== END ==
PROVIDERS: PCP Family Medicine; Referring Provider Family Medicine; Visit Provider Family Medicine
DX: Z34.90 Encounter for supervision of normal pregnancy, unspecified, unspecified trimester (principal)
CPT/HCPCS: 36415; 84702

== ENCOUNTER → 2025-07-14 13:58 | Outpatient (CLI) | payer OTHER, SELFPAY ==
[2025-07-14 15:32] LABS: HCG Quantitative /Beta subunit 6541.0 mIU/mL
== END ==
PROVIDERS: PCP Family Medicine; Referring Provider Family Medicine; Visit Provider Family Medicine
DX: Z34.80 Encounter for supervision of other normal pregnancy, unspecified trimester (principal)
CPT/HCPCS: 36415; 84702

== ENCOUNTER → 2025-08-01 12:14 | Outpatient (CLI) | payer OTHER, SELFPAY | PROVIDERS: PCP Family Medicine; Visit Provider Family Medicine | DX: N89.8 Other specified noninflammatory disorders of vagina (principal) | CPT/HCPCS: 87210 ==

== ENCOUNTER → 2025-08-01 12:27 | Outpatient (CLI) | payer OTHER, SELFPAY ==
[2025-08-01 13:14] LABS: Add Manual Diff / Slide Review NO; Hematocrit 39.4 % (36-46); Hemoglobin 13.6 g/dL (12.0-16.0); Lymphocytes Absolute Auto 2000 /uL (1100-4500); Mean Corpuscular HGB Conc 34.6 % (30-36); Mean Corpuscular Hemoglobin 29.7 PG (26-34); Mean Corpuscular Volume 86.0 fL (80-100); Platelet Count 242 X10^3/uL (150-400)
[2025-08-01 13:18] LABS: Hemoglobin A1C% w Est Avg Glu 5.1 % (4.0-6.0)
[2025-08-01 14:35] LABS: Appearance Urine UA CLEAR; Bilirubin Urine UA NEGATIVE (NEGATIVE); Color Urine UA YELLOW; Glucose Urine UA NEGATIVE (Negative); Ketones Urine UA NEGATIVE (NEGATIVE); Leukocyte Esterase Urine UA 1+ (NEGATIVE); Nitrite Urine UA NEGATIVE (Negative); Occult Blood Urine UA 1+ (Negative); Protein Urine UA NEGATIVE (Negative); Specific Gravity Urine UA 1.010 (1.000-1.035); Urobilinogen Urine UA 0.2 E.U./dL (0.2); pH Urine UA 5.5 (4.5-8.0)
[2025-08-02 15:14] LABS: HIV 1 & 2 Ab/Ag 4th Gen Combo NEGATIVE (NEGATIVE); Hep C Virus Ab w/Reflex Quant NEGATIVE s/c (NEGATIVE); Hepatitis B Surface Antigen NEGATIVE s/c (NEGATIVE)
== END ==
PROVIDERS: PCP Family Medicine; Referring Provider Family Medicine; Visit Provider Family Medicine
DX: Z34.80 Encounter for supervision of other normal pregnancy, unspecified trimester (principal); E66.9 Obesity, unspecified; E28.2 Polycystic ovarian syndrome
CPT/HCPCS: 36415; 80055; 81003; 81015; 83036; 86787; 86803; 86850; 86900; 86901; 87086; 87210; 87389

== ENCOUNTER → 2025-08-11 15:08 | Outpatient (CLI) | payer OTHER, SELFPAY ==
--- NOTE | 2025-08-11 15:10 | DI.US.S_ITS ---
PROCEDURE: US OB <= 14 WEEKS FETUS INDICATIONS: SPOTTING OUTSIDE/PRIOR DATING DATA: Last menstrual period (LMP): 04/15/2025. LMP-based estimated date of delivery (BOAZ): 01/20/2026. First dating scan (date and location): 08/01/2025. Estimated date of delivery (BOAZ) from first dating scan: 03/15/2026. The calculations are made using the ultrasound BOAZ of 03/15/2026. TECHNIQUE: Real-time scanning was performed of the fetus and maternal pelvic organs, with image documentation. Endovaginal scanning was also performed to better visualize the fetus and maternal ovaries. COMPARISON: [facility], , US OB <= 14 WEEKS FETUS, 05/24/2025, 12:32. FINDINGS: Embryo: pole with crown-rump length measuring 3.2 cm, consistent with 10 weeks and 1 day. Heart rate: 178 beats per minute. Maternal organs: Ovaries are within normal limits. IMPRESSION: Single live intrauterine consistent with 10 weeks and 1 day. We strive to produce accurate, complete, and clear reports of imaging services. To assist us in improving patient care, this report was composed using standard report templates and voice recognition software. Therefore, it may contain abnormal punctuation, insertions and/or omissions. Occasional wrong-word or sound-alike substitutions may occur. Though we review the report and make efforts to correct it, we do recommend that the report be read carefully in proper context to recognize any text inaccuracies. Dictated by: Song Gaston M.D. on 08/11/2025 at 16:22 Approved by: Song Gaston M.D. on 08/11/2025 at 16:24
== END ==
PROVIDERS: PCP Family Medicine; Referring Provider Family Medicine; Visit Provider Family Medicine
DX: O26.851 Spotting complicating pregnancy, first trimester (principal); Z3A.10 10 weeks gestation of pregnancy
CPT/HCPCS: 76801; 76817